=== PATIENT | female | born 1960 | race Caucasian/White ===

== ENCOUNTER 2019-12-03 18:40 | Emergency (ER) | payer BC, SELFPAY ==
--- NOTE | 2019-12-03 18:49 | ED.GENADULT ---
HPI - General Adult General Chief complaint: Skin/Abscess/Foreign Body Stated complaint: poison kye Time Seen by Provider: 12/03/19 18:55 Source: patient Mode of arrival: ambulatory Limitations: no limitations History of Present Illness HPI narrative: 59-year-old female patient presents to the [facility] with complaints of a rash to the chin, neck, chest, abdomen, bilateral arms and bilateral legs. Patient states she has had this for the past 7 days. Patient states that she is highly allergic to poison kye and states that her has poison kye and she thinks that she got it from him. Denies any chest pain or shortness of breath. Denies any swelling to the lips tongue or face or trouble swallowing. Related Data Allergies Allergy/AdvReac Type Severity Reaction Status Date / Time enteric coating Allergy Uncoded 12/03/19 18:57 Review of Systems Review of Systems: Narrative: CONSTITUTIONAL: Denies fever, chills, or sweats. EYES: Denies visual changes, redness, or discharge. ENT: Denies rhinorrhea, congestion, sore throat, or otalgia. CARDIOVASCULAR: Denies chest pain, palpitations, or edema. RESPIRATORY: Denies cough or dyspnea. GASTROINTESTINAL: Denies abdominal pain, nausea, vomiting, or diarrhea. GENITOURINARY: Denies dysuria or hematuria. SKIN: Positive generalized rash with itching x7 days MUSCULOSKELETAL: Denies back pain, joint pain, or myalgia. NEUROLOGIC: Denies headache, numbness, or weakness. PSYCHIATRIC: Denies anxiety or depression. PMFSH Comments At the time of my signature I agree with nursing past medical history, surgical, social, and family history. There is no relevant family history pertinent to the presenting complaint. Exam Narrative: Exam Narrative: GENERAL: Well-appearing, well-nourished, and in no acute distress. HEAD: Normocephalic, atraumatic. EYES: PERRLA and EOMI. ENT: Nares clear, no rhinorrhea or epistaxis. Mucous membranes moist. NECK: Supple. No lymphadenopathy CHEST: Clear to auscultation. No respiratory distress. HEART: Regular rate and rhythm. No murmur heard. Normal peripheral pulses. ABDOMEN: Soft, nontender, nondistended, normal active bowel sounds. EXTREMITIES: Normal range of motion. No edema. SKIN: Warm, dry, patient has periodic blotchy rash noted to the creases of bilateral elbows along with some satellite areas and small raised papules around the wrist. Patient has a linear rash noted to the left side of the chin and the left side of the neck. Patient has similar blotchy-like rash noted to the abdomen area. No open wounds or discharge. NEURO: No focal deficits. Alert and oriented x3. Course Vital Signs Vital signs: Vital Signs Temperature 36.0 C L 12/03/19 18:51 Pulse Rate 65 12/03/19 18:51 Respiratory Rate 16 12/03/19 18:51 Blood Pressure 116/80 12/03/19 18:51 Pulse Oximetry 99 12/03/19 18:51 Temperature 36.0 C L 12/03/19 18:51 Pulse Rate 65 12/03/19 18:51 Respiratory Rate 16 12/03/19 18:51 Blood Pressure 116/80 12/03/19 18:51 Pulse Oximetry 99 12/03/19 18:51 Vital signs reviewed. Medical Decision Making Differential Diagnosis Differential Diagnosis: Differential diagnosis: Contact dermatitis, poison kye, poison sumac, psoriasis, eczema, allergic reaction, drug reaction, scabies, tinea syphilis, lung disease, viral exanthema, pityriasis, erythema multiforme. Discussed with patient we will discharge her home with some oral steroids and use a taper dose to help with the rash. Discussed with her she can continue using the cornstarch and apple cider vinegar as needed to help with the itching that she has been doing. Discussed with patient if she has trouble breathing, chest pain or any other concerning symptoms she would need to go the ER for further evaluation and treatment. Patient verbalized understanding denies any other questions or concerns at this time. Vital Signs Vital Signs: Vital Signs Temperature 36.0 C L 12/03/19 18:51
[2019-12-03 18:51] VITALS: BP 116/80; PULSE 65; RESP 16; TEMP 36; O2SAT 99
== END 2019-12-03 19:05 | disposition home or self-care (01) ==
PROVIDERS: Emergency Provider Nurse Practitioner Family
DX: L23.7 Allergic contact dermatitis due to plants, except food (principal)
CPT/HCPCS: 99213; G0463

== ENCOUNTER 2022-01-15 12:25 | Outpatient (CLI) | payer BC, SELFPAY ==
--- NOTE | ~2022-01-15 | CT_ITS ---
EXAMINATION: CT abdomen pelvis w con DATE: 01/15/2022 13:54 INDICATION: Lower abdominal pain. Stool and consistency. TECHNIQUE: Computed tomography (CT) of the abdomen and pelvis was performed with 100 cc Omnipaque 350 intravenous contrast. The dose-length product was 470.83 mGy-cm. Automated exposure control and iter ative reconstruction technique were employed. COMPARISON: None. FINDINGS: There is dependent atelectasis. Heart size normal. No significant pleural or pericardial ef fusion. The liver, spleen, pancreas, adrenal glands and left kidney are unremarkable. No ureteral sto [place]. Bladder is decompressed. There is a low-density lesion in the left kidney, most likely benign cy st. There is mild thickening of the sigmoid colon with diverticula and subtle surrounding pericolonic fatty infiltration, compatible with mild acute diverticulitis. No free air. No evidence for abscess. No significant vascular abnormality. Gallbladder is present. No lymphadenopathy. Mild osteoarthritis of the hips. Moderate lumbar spondylosis. Limbus vertebra are present at L3, L4 and L5. IMPRESSION: 1. Mild uncomplicated acute sigmoid diverticulitis. Reviewed, dictated and finalized at location A.
[2022-01-15 13:35] LABS: Estimated Glomerular Filt Rate > 60
== END 2022-01-15 12:26 | disposition home or self-care (01) ==
PROVIDERS: PCP Internal Medicine; Visit Provider Nurse Practitioner
DX: R10.30 Lower abdominal pain, unspecified (principal); Z85.41 Personal history of malignant neoplasm of cervix uteri; K57.30 Diverticulosis of large intestine without perforation or abscess without bleeding
CPT/HCPCS: 74177; Q9967

== ENCOUNTER 2022-03-04 17:40 | Inpatient (IN) | payer BC, SELFPAY ==
[2022-03-04] VITALS (27 sets, daily range): BP systolic 98–131; BP diastolic 58–103; PULSE 67–95; RESP 11–26; TEMP 36.9–39; O2SAT 93–100
--- NOTE | ~2022-03-04 | MR_ITS ---
EXAMINATION: MR cervical spine wo/w con DATE: 03/06/2022 14:10 INDICATION: Multiple sclerosis. TECHNIQUE: Magnetic resonance imaging (MRI) of the cervical spine was performed without and with 13 m L MultiHance intravenous contrast. COMPARISON: None FINDINGS: There is kyphosis of cervical spine. Vertebral body heights are normal. There is mildly dec reased disc height at C3-C4. There is severely decreased disc height from C4-C5 through C6-C7. The sp inal cord signal intensity is normal. The following disc levels are specifically discussed: C2-C3: The disc does not extend beyond the endplate margin. There is no uncovertebral joint osteoarth ritis. There is mild right and severe left facet joint osteoarthritis. There is moderate left neural foraminal stenosis. There is no central canal stenosis. C3-C4: The disc is bulging. There is mild bilateral uncovertebral joint osteoarthritis. There is mode rate bilateral facet joint osteoarthritis. There is mild bilateral neural foraminal stenosis. There i s mild central canal stenosis with ventral indentation of the spinal cord. C4-C5: The disc is bulging. There is severe bilateral uncovertebral joint osteoarthritis. There is mi ld bilateral facet joint osteoarthritis. There is moderate bilateral neural foraminal stenosis. There is moderate central canal stenosis with ventral and dorsal indentation of the spinal cord. C5-C6: The disc is bulging. There is moderate right and severe left uncovertebral joint osteoarthriti s. There is no facet joint osteoarthritis. There is severe left neural foraminal stenosis. There is m ild central canal stenosis. C6-C7: The disc is bulging. There is severe bilateral uncovertebral joint osteoarthritis. There is mi ld bilateral facet joint osteoarthritis. There is moderate bilateral neural foraminal stenosis. There is mild central canal stenosis. C7-T1: There is a central extrusion. There is no uncovertebral joint osteoarthritis. There is moderat e bilateral facet joint osteoarthritis. There is mild bilateral neural foraminal stenosis. There is m ild central canal stenosis. IMPRESSION: 1. No evidence of multiple sclerosis. 2. Severe cervical spondylosis. Reviewed, dictated and finalized at location B.
--- NOTE | ~2022-03-04 | CT_ITS ---
EXAMINATION: CT abdomen pelvis w con DATE: 03/04/2022 19:51 INDICATION: LLQ pain, recent diverticulitis, fever TECHNIQUE: Computed tomography (CT) of the abdomen and pelvis was performed with 100 mL Omnipaque-350 intravenous contrast. Automated exposure control and iterative reconstruction technique were employe d. The dose-length product was 560.02 mGy-cm. COMPARISON: None. FINDINGS: Lower thorax: Unremarkable Liver: Normal. Biliary/Gallbladder: No bile duct dilation. Pancreas: No mass or duct dilation. Spleen: Normal. Adrenals:No mass. Kidneys: Simple right upper pole cyst. Multiple bilateral hypodensities that are too small to charact erize. GI tract: Distal esophageal and gastric wall edema. No small or large bowel dilation. Descending and sigmoid colon wall edema. Normal appendix. Diverticulosis without diverticulitis. Mesentery/Peritoneum: No ascites, mass, or free air. Retroperitoneum: No mass. Atherosclerotic abdominal aortic and/or arterial calcifications. Pelvis: Pelvic organs are within normal limits. Soft Tissues: Soft tissues and body wall unremarkable. Bones: No acute osseous finding. IMPRESSION: Esophagitis/gastritis. Descending colonic and sigmoid wall edema as can be seen with infectious, isch emic, or inflammatory colitis. Reviewed, dictated and finalized at location K. IMPRESSION: Esophagitis/gastritis. Descending colonic and sigmoid wall edema as can be seen with infectious, ischemic, or inflammatory colitis.
--- NOTE | ~2022-03-04 | CT_ITS ---
EXAMINATION: CT brain wo con DATE: 03/04/2022 19:51 INDICATION: syncope X 2, fall, HI, confusion . TECHNIQUE: Computed tomography (CT) of the head was performed without intravenous contrast. The mA wa s adjusted according to patient size. Iterative reconstruction technique was employed. The dose-lengt h product was 605.33 mGy-cm. COMPARISON: None FINDINGS: No acute intracranial hemorrhage or extra-axial fluid collection. No hydrocephalus, mass, or herniation. Focal periventricular hypodensity, projecting off of the body of the right lateral ventricle in the r ight posterior frontal lobe. Unremarkable dural venous sinus attenuation. No acute osseous abnormality. The aerated spaces are clear. Mild atrophy and chronic white matter change. Left basal ganglia calcification. Atherosclerotic intra cranial calcification. IMPRESSION: Periventricular hypodensity in the right frontal lobe, differential includes but is not limited to lemon bacute/chronic periventricular infarct or edema from a demyelinating lesion. Consider MR of the brain with and without contrast when clinically feasible. Reviewed, dictated and finalized at location K. IMPRESSION: Periventricular hypodensity in the right frontal lobe, differential includes bu t is not limited to subacute/chronic periventricular infarct or edema from a de myelinating lesion. Consider MR of the brain with and without contrast when cli nically feasible.
--- NOTE | ~2022-03-04 | MR_ITS ---
EXAMINATION: MR brain/brain stem wo/w con DATE: 03/05/2022 08:43 INDICATION: Acute mental status. Paraventricular infarct versus edema on head CT. TECHNIQUE: Magnetic resonance imaging (MRI) of the brain and brainstem was performed without and with 12 mL Multihance intravenous contrast. Sequences included sagittal and axial T1-weighted SE, axial d iffusion-weighted FS SE, axial T2*-weighted GRE, axial 3D SWAN, axial T2-weighted FLAIR, and axial T2 -weighted FSE. Postcontrast axial and coronal T1-weighted SE was obtained. Apparent diffusion coeffic ient (ADC) maps were created. COMPARISON: Head CT dated 03/04 2022 FINDINGS: There are no areas of restricted diffusion to suggest acute infarction. No intracranial hemorrhage or abnormal intracranial mass lesion. There are scattered areas of nonspecific increased T2-weighted si gnal intensity in the cerebral white matter, predominantly involving the deep and periventricular whi te matter. This includes the prominent focus of right frontal lobe periventricular white matter hypoa ttenuation prior CT. These could represent small infarcts and sequela of chronic small vessel ischemi c disease. Several of the pericallosal white matter lesions however have the appearance of Krause's f ingers which also results in some suspicion for multiple sclerosis.. The pericallosal lesions demonst rate associated decreased T1 signal. There are no intraparenchymal signal abnormalities seen on the o ther pulse sequences. The ventricles are symmetric and normal in size. There are no abnormal extra-ax ial fluid collections. Flow voids are seen in the cerebral arteries on the T2-weighted sequences cons istent with their expected patency. Mild mucosal thickening in the paranasal sinuses. Visualized orbi ts and soft tissues are unremarkable. There are no areas of abnormal enhancement on the post contrast images. IMPRESSION: 1. No acute intracranial process. 2. Multiple small regions of white matter T2 hyperintensity which could be related to small vessel is chemic disease although there are several pericallosal lesions with appearance of Krause's fingers wh ich also raises the possibility of multiple sclerosis. Reviewed, dictated and finalized at location A. IMPRESSION: 1. No acute intracranial process. 2. Multiple small regions of white matter T2 hyperintensity which could be rela fabiola to small vessel ischemic disease although there are several pericallosal le sions with appearance of Krause's fingers which also raises the possibility of multiple sclerosis.
--- NOTE | ~2022-03-04 | CT_ITS ---
EXAMINATION: CT cervical spine wo con DATE: 03/04/2022 19:51 INDICATION: syncope X 2, fall, HI TECHNIQUE: Computed tomography (CT) of the cervical spine was performed without intravenous contrast. Automated exposure control and iterative reconstruction technique were employed. The dose-length pro duct was 251.05 mGy-cm. COMPARISON: None FINDINGS: Vertebral Body Alignment: Mild grade 1 anterolisthesis of C2 on 3, likely on a degenerative basis.. Craniocervical and atlantoaxial alignment: Mild degenerative change. Alignment intact. Osseous structures/fracture: No evidence of a lytic or blastic process in the visualized spine. No e vidence of acute fracture. Cervical soft tissues: The paraspinal soft tissues planes are maintained. Degenerative changes: Multilevel severe degenerative disc disease. Multilevel moderate left neural fo raminal narrowing. No severe central canal narrowing. IMPRESSION: No acute fracture or traumatic malalignment in the cervical spine. Reviewed, dictated and finalized at location K.
--- NOTE | ~2022-03-04 | MR_ITS ---
EXAMINATION: MR thoracic spine wo/w con DATE: 03/06/2022 14:18 INDICATION: Multiple sclerosis. TECHNIQUE: Magnetic resonance imaging (MRI) of the thoracic spine was performed without and with 13 m L MultiHance intravenous contrast. COMPARISON: None FINDINGS: Bone alignment is normal. Vertebral body heights are normal. There is mildly decreased disc height from T3-T4 through T6-T7. The discs do not extend beyond the endplate margins. There is multi level facet joint osteoarthritis, severe in upper thoracic spine. On the right, there is mild neural foraminal stenosis at T2-T3 and T4-T5. On the left, there is mild neural foraminal stenosis at T2-T3, T3-T4, and T4-T5. There is increased T2-weighted signal intensity in the spinal cord at T12 without contrast enhancement. The conus medullaris is at L1. IMPRESSION: 1. Increased T2-weighted signal intensity in the spinal cord at T12. The differential diagnosis inclu debbie multiple sclerosis, transverse myelitis, viral myelitis, and acute disseminated encephalomyelitis . 2. Mild thoracic spondylosis. Reviewed, dictated and finalized at location B. IMPRESSION: 1. Increased T2-weighted signal intensity in the spinal cord at T12. The differ ential diagnosis includes multiple sclerosis, transverse myelitis, viral myelit is, and acute disseminated encephalomyelitis. 2. Mild thoracic spondylosis.
--- NOTE | 2022-03-04 17:46 | ECG_ITS ---
Measurements Intervals [place] Rate: 94 P: 67 SC: 141 QRS: 45 QRSD: 81 T: 8 QT: 326 QTc: 408 Interpretive Statements SINUS RHYTHM POSSIBLE LEFT ATRIAL ENLARGEMENT [-0.1mV P WAVE IN V1/V2] NONSPECIFIC ST & T-WAVE ABNORMALITY NO PREVIOUS ECG AVAILABLE FOR COMPARISON Electronically Signed On 03-05-2022 17:38:35 CDT by Soco Farris M.D.
--- NOTE | 2022-03-04 18:30 | ED.GENADULT ---
HPI - General Adult General Chief complaint: Syncope <MARCELA Nolan Last Filed: 03/04/22 20:38> Stated complaint: Syncope x 2 in the past 24 hours <MARCELA Nolan Last Filed: 03/04/22 20:38> Time Seen by Provider: 03/04/22 18:15 <MARCELA Nolan Last Filed: 03/04/22 20:38> Source: patient and old records reviewed <MARCELA Nolan Last Filed: 03/04/22 20:38> Mode of arrival: ambulatory <MARCELA Nolan Filed: 03/04/22 20:38> Limitations: no limitations <MARCELA Nolan Last Filed: 03/04/22 20:38> History of Present Illness HPI narrative: Patient is a 61 y/o female who presents to the ED with multiple complaints. Patient reports she had 2 syncopal episodes within the last 24 hours. 1 episode yesterday, the second at around 5 AM this morning. Patient states she woke up on her bathroom marble floor. She states the cold floor was helpful because she had a fever up to 103 degrees earlier that day. She does remember feeling dizzy prior to passing out. She states she has felt confused since the falls. Patient also reports having lower abdominal pain. She was recently diagnosed with diverticulitis and started on Cipro/Flagyl on 01/16. Since finished these antibiotics. Patient c/o mild headache currently and recent diarrhea and constipation, denies CP, SOB, current dizziness, vision changes, rectal bleeding. <MARCELA Nolan Last Filed: 03/04/22 20:38> Related Data Allergies/adverse reactions: Allergies Allergy/AdvReac Type Severity Reaction Status Date / Time enteric coating Allergy Mild Hives Uncoded 02/09/22 15:27 <MARCELA Nolan Last Filed: 03/04/22 20:38> Review of Systems Review of Systems: CONSTITUTIONAL: Denies fever, chills, or sweats. EYES: Denies visual changes. ENT: Denies rhinorrhea, congestion, sore throat. CARDIOVASCULAR: Denies chest pain. RESPIRATORY: Denies cough or dyspnea. GASTROINTESTINAL: Reports lower abdominal pain, diarrhea, constipation. Denies nausea, vomiting, rectal bleeding. GENITOURINARY: Denies dysuria or hematuria. NEUROLOGIC: Reports dizziness, syncope, HI, dizziness, JIMENEZ. Denies numbness or focal weakness. <Sheela Tripathi PA-C - Last Filed: 03/04/22 20:38> All systems reviewed & are unremarkable except as noted in HPI and below <Sheela Tripathi PA-C - Last Filed: 03/04/22 20:38> PMFSH Past Medical History Medical History: Medical History Broken toes Cervical cancer Frozen shoulder Tear of rotator cuff <Sheela Tripathi PA-C - Last Filed: 03/04/22 20:38> Surgical History Surgical History: Surgical History (Updated 03/04/22 @ 18:30 by Sheela Tripathi PA-C) History of colonoscopy <Sheela Tripathi PA-C - Last Filed: 03/04/22 20:38> Family History Family History: Family History Mother Tremors of nervous system Father Heart disease Sibling Heart disease Sibling No problems noted. <Sheela Tripathi PA-C - Last Filed: 03/04/22 20:38> Social History Social History: Social History Smoking status: Never smoker <Sheela Tripathi PA-C - Last Filed: 03/04/22 20:38> Exam Narrative: GENERAL: Well appearing, well-nourished, non-toxic, in no acute distress. HEAD: Normocephalic, atraumatic. EYES: PERRL/EOMI, conjunctivae clear bilaterally. No nystagmus. THROAT: Pharynx clear, no exudate. MMs dry and tacky. NECK: Supple. No adenopathy, no masses. Full ROM of neck. No meningeal signs - negative Kernig's and Brudzinski's. RESPIRATORY: Airway patent, respirations nonlabored. Clear to auscultation bilaterally, no rales, rhonchi, wheezing. CARDIOVASCULAR: Borderline tachycardic with regular rhythm w
[2022-03-04] MEDS: SODIUM CHLORIDE 0.9% IV 1,000 ML 999 ML IV CONT (18:53)
[2022-03-04 19:03] LABS: Basophils Percent Auto 0.5 % (0.2-1.2); Hematocrit 39.3 % (37.0-47.0); Hemoglobin 13.5 g/dL (12.0-15.0); Immature Granulocyte Absolute 0.02 K/mm3 (0.00-0.031); Immature Granulocyte Percent A 0.5 % (0-0.5); Lymphocytes Percent Auto 20.3 % (18.3-44.2); Mean Corpuscular HGB Conc 34.4 g/dl (32-36); Mean Corpuscular Hemoglobin 30.8 pg (26-34); Mean Corpuscular Volume 89.5 fl (80-100); Mean Platelet Volume 11.7 fl (7.4-10.4); Monocytes Absolute Auto 0.5 K/mm3 (0.1-0.6); Monocytes Percent Auto 11.9 % (2.6-8.5); Neutrophils Percent Auto 66.8 % (45.5-73.1); Platelet Count Result 164 k/mm3 (150-375); Red Blood Count 4.39 M/mm3 (4.2-5.4); White Blood Count 4.4 K/mm3 (4.5-10.0)
[2022-03-04 19:09] LABS: Creatine Kinase 50 U/L (30-135)
[2022-03-04 19:09] LABS: Lactic Acid Reflex 0.8 mmol/L (0.7-2.0)
[2022-03-04 19:12] LABS: Alanine Aminotransferase 21 U/L (6-35); Albumin Level 4.5 g/dL (3.5-5.1); Alkaline Phosphatase 61 U/L (38-126); Anion Gap 11 mmol/L (8-16); Aspartate Amino Transferase 38 U/L (14-36); Bilirubin,Total 1.3 mg/dL (0.2-1.3); Blood Urea Nitrogen 19 mg/dL (7-17); Calcium 8.8 mg/dL (8.4-10.2); Carbon Dioxide 24 mmol/L (22-30); Chloride 99 mmol/L (98-107); Estimated CRCL calculation 49 ml/min; Estimated Glomerular Filt Rate > 60; Glucose 122 mg/dL (65-110); Potassium 3.6 mmol/L (3.4-5.0); Sodium 134 mmol/L (137-145)
[2022-03-04 19:22] LABS: Troponin I < 0.012 ng/mL (0.000-0.034)
[2022-03-04 19:34] LABS: SARS-CoV-2 RNA PCR Negative
[2022-03-04 20:28] LABS: Appearance Urine Clear (Clear); Bilirubin Urine Negative (Negative); Blood Urine 2+ (Negative); Color Urine Yellow (Yellow); Glucose Urine UA Negative (Negative); Ketones Urine Trace mg/dL (Negative); Leukocyte Esterase Ur Negative LEU/UL (Negative); Nitrate Urine Negative (Negative); Protein Urine 2+ mg/dL (Negative); Specific Grav Ur 1.015 (1.001-1.035); Urobilinogen Urine 0.2 mg/dL (<2.0); pH Urine 5.5 (5.0-9.0)
[2022-03-04 20:34] LABS: Mucus Urine Few /lpf; Squamous Epithelial Cell Urine Many /hpf (Few)
[2022-03-04 20:36] LABS: Add Urine Microscopic? YES
[2022-03-04 20:41] LABS: Amphetamine Screen Urine Negative (Negative); Barbiturate Screen Urine Negative (Negative); Benzodiazepines Screen Urine Negative (Negative); Cannabinoid Screen Urine Negative (Negative); Cocaine Screen Urine Negative (Negative); Methadone Screen Urine Negative (Negative); Opiate Screen Urine Negative (Negative); Phencyclidine Screen Urine Negative (Negative)
[2022-03-05] VITALS (16 sets, daily range): BP systolic 85–119; BP diastolic 49–63; PULSE 71–96; RESP 16–25; TEMP 36.2–37; O2SAT 94–100; BMI 25.2
[2022-03-05] MEDS: ONDANSETRON INJ 4 MG/2 ML VIAL IV PUSH (00:10)
--- NOTE | 2022-03-05 01:20 | ADMGEN ---
This patient, Silvana Rojas, was admitted to Medical Room 242-01. Patient/family oriented to hospital policies and general routines including ID bracelet, bed and alarms, visiting hours, pain management, procedures, bathroom and other care routines, personal items, smoking policy, room service/diet, and visiting hours. Information on how to activate the Rapid Response Team has been discussed. Patient/Family are encouraged to report perceived risks to care and to ask questions if they do not understand what they are told or what they should do.
[2022-03-05] MEDS: SODIUM CHLORIDE 0.9% IV 1,000 ML 125 ML IV CONT ×3 (02:10→23:04)
[2022-03-05 03:52] LABS: Toxigenic C. Diff NEGATIVE (NEGATIVE)
--- NOTE | 2022-03-05 08:16 | PM.IMHP ---
H&P: HPI History of Present Illness Date/Time: 03/05/22 08:16 Chief Complaint: Syncope Narrative: 61-year-old female past medical history significant for cervical cancer, frozen shoulder, and rotator cuff tear and recent episode of diverticulitis in January treated with a course of Cipro/Flagyl. She presents today with 2 episodes of syncope and fever of 103 at home, 102.2 here in the ER. Patient states that last Sunday she was at work when she started having projectile vomiting after eating a slice of tomato. She then felt quite ill for the next few days. She was able to go to [employer] to hop picker her levothyroxine prescription, she was started on 25 mcg on . On Sunday, patient started experiencing significant diarrhea and had 2 episodes where she passed out in the bathroom after going to the restroom. She also noted fevers up to 103 at home and decided to come to the ER. Abdomen pelvis and CT was ordered and showed esophagitis, gastritis as well as significant colonic edema concerning for colitis. She was started on Zosyn and admitted with a GI consult. Additionally, she seemed to have some altered mentation in the ER with tangential speech and confusion. Therefore, CT head and neck was ordered showing subacute versus chronic periventricular infarcts versus edema, concerning for demyelinating disease. Neurology was also consulted and recommended an MRI. This was ordered and is pending. Labs were essentially benign with no leukocytosis nor transaminitis noted. Lactate was negative, creatinine was normal. Blood and urine cultures were sent. Initial urinalysis looks contaminated, repeat urinalysis is pending. ECG was essentially benign, COVID was negative, troponin was negative. Of note, patient presented to her PCP last month with continued lower abdominal pain intermittently as well as shoulder pain. At that time, an MRI was ordered for her shoulder for possible nerve impingement or cubital tunnel syndrome and she was referred to PT and started on a course of prednisone. She was referred to outpatient GI for screening colonoscopy in January to Dr. Tejada. It appears that she was recently started on levothyroxine, TSH unable to be found and no comment on PCP notes regarding this diagnosis. Review of Systems Review of Systems: 12 point review of systems was assessed and was negative except as noted in the HPI [facility] Past Medical History Medical History Broken toes Cervical cancer Frozen shoulder Tear of rotator cuff Surgical History Surgical History History of colonoscopy Family History Family History Mother Tremors of nervous system Hypothyroidism Osteoarthritis Father Heart disease Sibling Heart disease Sibling No problems noted. Social History Social History Smoking status: Never smoker Alcohol intake: never Substance use: never Spiritual care concerns: No Meds Home Medications and Allergies Home Medications Medication Instructions Recorded Confirmed Type levothyroxine 25 mcg capsule 25 mcg PO DAILY #90 tabs 03/03/22 03/05/22 Rx Allergies Allergy/AdvReac Type Severity Reaction Status Date / Time enteric coating Allergy Mild Hives Uncoded 03/05/22 01:36 Vital Signs Vital Signs - 24 hr 03/04/22 17:55 03/04/22 18:52 03/04/22 18:53 Temperature 102.2 F H Pulse Rate 95 89 91 Respiratory Rate 16 22 H 23 H Blood Pressure 131/73 131/74 Pulse Oximetry 94 95 94 Oxygen Delivery Room Air 03/04/22 20:36 03/04/22 19:05 03/04/22 19:18 Temperature Pulse Rate 75 89 82 Respiratory Rate 19 24 H 18 Blood Pressure 111/71 Pulse Oximetry 94 94 96 Oxygen Delivery 03/04/22 19:35 03/04/22 20:21 03/04/22 20:30 Temperature Pulse Rat
--- NOTE | 2022-03-05 08:43 | WPDNEURCNPN ---
Assessment and Plan Assessment and plan (1) Syncope: Code(s): R55 - Syncope and collapse Status: Acute (2) Acute alteration in mental status: Code(s): R41.82 - Altered mental status, unspecified Status: Acute (3) Abnormal CT of the head: Code(s): R93.0 - Abnormal findings on diagnostic imaging of skull and head, not elsewhere classified Status: Acute Plan Ms. Rojas is a 61 year old female with a history of cervical cancer presenting after two syncopal episodes in the setting of fever. CT head showed periventricular hypodensities confirmed with MRI, but no contrast enhancement. Patient is not in the age group for new onset MS, but she does report transient left vision blurriness and left facial numbness in the past. Another possibility is Susac syndrome given MRI findings and memory issues. - Obtain MRI cervical and thoracic spine w/wo contrast - Consider LP to check for oligoclonal bands Consult date: 03/05/22 Time Seen: 08:43 Reason for consult: Syncope and AMS HPI: Silvana Rojas is a 61 year old female with a history of cervical cancer, who presented due to syncopal episodes for the past two days in the setting of fever. Two days ago she had the first syncopal event. She felt lightheaded before losing consciousness. Yesterday she had another episode which prompted her to be evaluated in the ED. Her tmax was 103 at home and her temperature was 102.2 in the ED. She was diagnosed and treated for deverticulitis about [address] ABD/pelvis was obtained which showed findings concerning for colitis. She also had alteration in her mental status. She was AOx4, but had some tangential responses to questions that were asked. CT head was obtained which showed periventricular hypodensities. UA, UDS, COVID were negative. Vitamin B12 and Folate levels normal. She was started on Zosyn and admitted to the hospital. Patient reports word finding difficultures and memory issues for the past year. She has had episodes where she gets lost while driving in familiar areas. She thought these issues were due to underlying stress. She reports one time history of left eye blurriness of vision and transient left facial numbness (lasting few seconds). She does not remember when this symptoms occurred. She denies any other episodes of focal symptoms. MRI brain was done this AM which showed periventricular and pericallosal white matter lesions without contrast enhancement. Review of Systems Constitutional: Constitutional: Reports body ache(s), Reports chills and Reports fatigue Eyes: Eyes: Reports no additional eye complaints ENT: Reports system reviewed and no additional complaints, except as documented and Reports Normal hearing present Cardiovascular: Cardiovascular: Reports no additional cardiovascular complaints Respiratory: Respiratory: Reports no additional respiratory complaints Gastrointestinal: Gastrointestinal: Reports constipation Genitourinary: Genitourinary: Reports no additional female genitourinary complaints Musculoskeletal: Musculoskeletal: Reports arthralgias Integumentary/Breasts: Skin/Breast: Reports system reviewed and no additional complaints, except as docu Neurologic: Reports as per HPI Psychiatric: Psychiatric: Reports anxiety and Reports depression PMFSH Past Medical History Medical History Broken toes Cervical cancer Frozen shoulder Tear of rotator cuff Surgical History Surgical History History of colonoscopy Family History Family History Mother Tremors of nervous system Hypothyroidism Osteoarthritis Father Heart disease Sibling Heart disease Sibling No problems noted. Social History Social History Smoking status: Never smoker Alcohol in
[2022-03-05] MEDS: CIPROFLOXACIN 400 MG/D5W 200ML 200 ML 200 MG IVPB ×2 (08:46→20:15)
[2022-03-05] MEDS: PANTOPRAZOLE SODIUM IV 40 MG VIAL IV PUSH ×2 (08:59→20:13)
[2022-03-05] MEDS: KETOROLAC 15 MG/ML VIAL (*BKC) IV PUSH (09:00)
[2022-03-05 09:05] LABS: Appearance Urine Clear (Clear); Bilirubin Urine Negative (Negative); Blood Urine 2+ (Negative); Color Urine Yellow (Yellow); Glucose Urine UA Negative (Negative); Ketones Urine Negative (Negative); Leukocyte Esterase Ur Negative LEU/UL (NEGATIVE); Nitrate Urine Negative (Negative); Protein Urine 1+ mg/dL (Negative); Specific Grav Ur >= 1.030 (1.001-1.035); Urobilinogen Urine 0.2 mg/dL (<2.0); pH Urine 5.5 (5.0-9.0)
[2022-03-05 09:15] LABS: Add Urine Microscopic? YES; Mucus Urine Rare /lpf; Squamous Epithelial Cell Urine Rare /hpf (Few)
[2022-03-05 09:36] LABS: Vitamin D 25 Hydroxy 48.1 ng/mL
[2022-03-05] MEDS: metroNIDAZOLE 500 MG/ISO 100ML 500 MG/100 ML BAG 100 MG IVPB ×3 (10:05→21:18)
[2022-03-05 10:31] LABS: Folic Acid > 20.0 ng/mL (2.76->20)
[2022-03-05] MEDS: LEVOTHYROXINE SODIUM 75 MCG TABLET PO (13:01)
[2022-03-05] MEDS: ACETAMINOPHEN 325 MG TABLET 650 MG PO (17:14)
[2022-03-05 20:32] LABS: IFOB Positive Control Positive; Immunochemical Fecal Occult Bl Positive (N)
[2022-03-06] VITALS (7 sets, daily range): BP systolic 107–118; BP diastolic 49–68; PULSE 70–90; RESP 18–20; TEMP 36.8–38.1; O2SAT 95–98; BMI 25.2
[2022-03-06] MEDS: ACETAMINOPHEN 325 MG TABLET 650 MG PO ×2 (01:02→18:37)
[2022-03-06] MEDS: LEVOTHYROXINE SODIUM 75 MCG TABLET PO (05:34)
[2022-03-06] MEDS: metroNIDAZOLE 500 MG/ISO 100ML 500 MG/100 ML BAG 100 MG IVPB ×3 (05:34→22:08)
[2022-03-06 06:06] LABS: Hematocrit 31.4 % (37.0-47.0); Hemoglobin 10.3 g/dL (12.0-15.0); Mean Corpuscular HGB Conc 32.8 g/dl (32-36); Mean Corpuscular Hemoglobin 30.8 pg (26-34); Mean Platelet Volume 11.6 fl (7.4-10.4); Platelet Count Result 145 k/mm3 (150-375); Red Blood Count 3.34 M/mm3 (4.2-5.4); Red Cell Distribution Width 13.3 % (11.5-14.5); White Blood Count 4.3 K/mm3 (4.5-10.0)
[2022-03-06 06:37] LABS: Alanine Aminotransferase 20 U/L (6-35); Albumin Level 3.3 g/dL (3.5-5.1); Alkaline Phosphatase 49 U/L (38-126); Anion Gap 9 mmol/L (8-16); Aspartate Amino Transferase 35 U/L (14-36); Bilirubin,Total 0.6 mg/dL (0.2-1.3); Blood Urea Nitrogen 7 mg/dL (7-17); Calcium 7.8 mg/dL (8.4-10.2); Carbon Dioxide 23 mmol/L (22-30); Chloride 106 mmol/L (98-107); Estimated CRCL calculation 55 ml/min; Estimated Glomerular Filt Rate > 60; Glucose 98 mg/dL (65-110); Potassium 3.1 mmol/L (3.4-5.0); Sodium 138 mmol/L (137-145)
--- NOTE | 2022-03-06 07:04 | WPDGICN ---
Assessment and Plan Assessment and plan (1) Nausea and vomiting: Code(s): R11.2 - Nausea with vomiting, unspecified Status: Acute Assessment and Plan: which he had the most severe nausea vomiting 5 days ago. She states she had only liquids yesterday such as soup for lunch but did have some mashed potatoes at dinner last night and kept that down. I started her on a clear liquid diet for for this morning and saw that she was eating potato chips when I entered the room. As scheduled for an EGD to be done today (2) Colitis: Code(s): K52.9 - Noninfective gastroenteritis and colitis, unspecified Status: Acute Assessment and Plan: CT scan suggests colitis. She had already been scheduled for colonoscopy later this month due to the fact that she had diverticulitis last month (3) Diarrhea: Code(s): R19.7 - Diarrhea, unspecified Status: Acute Assessment and Plan: she is somewhat concerned about some and Humera. Stools have been sent for pathogens. (4) Fever: Code(s): R50.9 - Fever, unspecified Status: Acute Assessment and Plan: No fever since admission (5) Syncope: Code(s): R55 - Syncope and collapse Status: Acute Assessment and Plan: she apparently fainted twice at home. Once when she was having diarrhea she found herself on the marble floor. (6) Acute alteration in mental status: Code(s): R41.82 - Altered mental status, unspecified Status: Acute Assessment and Plan: ER notes suggest that she has had some confusion. She did have an MRI of the brain. She admits to me that she is having a difficult time recalling her history accurately. (7) Anemia: Code(s): D64.9 - Anemia, unspecified Status: Acute Assessment and Plan: initial hemoglobin was 13.5. Today is 10.3. MCV is normal (8) Blood in stool: Code(s): K92.1 - Melena Status: Acute Assessment and Plan: hemoccult is positive. GI Consult Note Consult date/time: 03/06/22 07:04 HPI: Silvana Rojas is a 61 year old female who was admitted here with recent vomiting with fever and some mental confusion. She states that she also is having diarrhea. She was treated with what was thought to be diverticulitis about a month ago and then referred for colonoscopy. About a week ago she had eaten a vegetable based meal at a fast food restaurant, [employer], and 2 days later while at work developed severe vomiting with retching. It was uncontrollable. A co-worker went to a pharmacy and got her some Dramamine. She still however felt too weak to even drive herself home. The next day she felt fairly good but later in the week she became ill again with fever, lower abdominal cramping as if having ovarian menstrual cramps, and diarrhea. She had been in the bathroom with diarrhea when she passed out and found herself on the floor. She states that she had she had 2 episodes of falling. Of note, she was also found have some altered mentation in the emergency room and affect taking her history I also found that she had somewhat tangential speech. She admitted that she has been foggy and had a difficult time recalling details. She states that when she saw her physician last month for what was thought to be diverticulitis she may have had a similar type of taco shortly before that episode. She added that she wants to be checked for everything, wanting blood tests for HIV and all possible infections she had tolerated soup yesterday. She had mesh tails in the evening. I have put her on a clear liquid diet in anticipation of possible endoscopy today to evaluate the abnormality seen on CT scan. As I entered the room she was eating potato chips. She had been referred to me to have a colonoscopy later this month. She is in fact I see on the schedule with Dr. Chery. She has had no vomiting since she came here. Prior to month ago she
[2022-03-06] MEDS: SODIUM CHLORIDE 0.9% IV 1,000 ML 125 ML IV CONT ×2 (07:51→20:04)
[2022-03-06] MEDS: PANTOPRAZOLE SODIUM IV 40 MG VIAL IV PUSH ×2 (09:10→20:04)
[2022-03-06] MEDS: POTASSIUM CHLORIDE 20 MEQ TABLET 40 MEQ PO (09:10)
[2022-03-06] MEDS: CIPROFLOXACIN 400 MG/D5W 200ML 200 ML 200 MG IVPB ×2 (09:11→20:05)
[2022-03-06 09:20] LABS: Atypical Lymphocytes Present; Band Neutrophils Percent 28 % (0-6); Lymphocytes Absolute Manual 1.41 K/mm3 (1.1-4.5); Monocytes Absolute Manual 0.55 K/mm3 (0.1-0.90); Monocytes Percent Manual 13 % (3-9); Neutrophils Absolute Manual 2.32 K/mm3 (1.7-7.2); Neutrophils Percent Manual 26 % (46-73); Platelet Estimate Adequate (Adequate); Schistocytes None Seen (NORMAL); Total Cells Counted 100
--- NOTE | 2022-03-06 10:21 | PC.NURSE ---
Speech And Language Assistant spoke with Deisy CAMACHO in GI lab, made aware pt is refusing to allow Dr. Tejada a frail old man preform her surgery when she follow Dr. Chery and is only allowing him to complete the procedure as she is not confident in any other MD. Pt is aware Dr. Chery is out of office she reports she has colonoscopy scheduled 03/24/2022. Deisy reports she will report this to Dr. Tejada.
--- NOTE | 2022-03-06 13:15 | PC.NURSE ---
To MRI via wheelchair.
--- NOTE | 2022-03-06 14:15 | PC.NURSE ---
Returned from MRI via wheelchair.
--- NOTE | 2022-03-06 18:13 | PM.IMPN ---
Progress Note: A&P Assessment and Plan (1) Acute alteration in mental status: Code(s): R41.82 - Altered mental status, unspecified Status: Acute Assessment and Plan: Appears stable, possibly at baseline, appreciate neurology consultation, MRI cervical and thoracic spine pending to evaluate for possible MS (2) Colitis: Code(s): K52.9 - Noninfective gastroenteritis and colitis, unspecified Status: Acute Assessment and Plan: GI planned for EGD today, cannot see this was done or not in the chart, stool studies and stool culture pending Continue Cipro/Flagyl (3) History of cervical cancer: Code(s): Z85.41 - Personal history of malignant neoplasm of cervix uteri Status: Acute Assessment and Plan: Outpatient OBGYN consult pending (4) Hypothyroidism: Code(s): E03.9 - Hypothyroidism, unspecified Status: Acute Assessment and Plan: Check TSH, cont levothyroxine TSH >13.6, will start weight based dose of levothyroxine (1.6 mcg/kg = 105 mcg) will start slow at 75 mcg and recheck in 2-3 weeks outpatient, will likely need around 100 mcg daily (5) Abnormal CT of the head: Code(s): R93.0 - Abnormal findings on diagnostic imaging of skull and head, not elsewhere classified Status: Acute Assessment and Plan: Appreciate neuro consult, MRI pending MRI showed possible MS, awaiting neuro recs (6) Lower abdominal pain: Code(s): R10.30 - Lower abdominal pain, unspecified Status: Acute Assessment and Plan: Unsure of etiology (7) Syncope: Code(s): R55 - Syncope and collapse Status: Acute Assessment and Plan: Check echo, check MRI, check orthostatics Plan DVT prophylaxis with SCDs GI prophylaxis with PPI Code status full code Subjective Date/time seen: 03/06/22 18:13 Interval history: Try to check on patient multiple times, patient was an EGD then later on MRI, then later on still out of the room. Per the nurse, there were no new overnight events. No fevers. Nursing staff state patient seems about the same as yesterday. Review of Systems Review of Systems: Unable to assess as patient was out of the room most of the day Exam Narrative: Deferred Objective Data Vital Signs Vital Signs: Vital Signs - 24 hr 03/05/22 21:42 03/06/22 01:02 03/06/22 06:00 Temperature 97.4 F L 100.5 F H 98.6 F Pulse Rate 75 70 Respiratory Rate 16 20 Blood Pressure 108/52 L 110/68 Pulse Oximetry 94 98 Oxygen Delivery 03/06/22 09:10 Temperature Pulse Rate Respiratory Rate 20 Blood Pressure Pulse Oximetry 98 Oxygen Delivery Room Air Intake/Output Intake/Output: Intake & Output 03/03/22 03/04/22 03/05/22 03/06/22 23:59 23:59 23:59 23:59 Intake Total 1100 3620 3010 Output Total 1500 5 Balance 1100 2120 3005 Meds/Results Medications: Active Medications Generic Name Dose Route Start Last Admin Trade Name Freq PRN Reason Stop Dose Admin Acetaminophen 650 mg 03/05/22 17:01 03/06/22 01:02 Acetaminophen 325 Mg Tablet PO 650 mg Q6H PRN Administration Mild Pain (1-3) or Fever Sodium Chloride 1,000 mls @ 125 mls/hr 03/05/22 00:25 03/06/22 15:28 Normal Saline Iv IV CONT 125 mls/hr .Q8H WILLIAM Infusion Metronidazole 500 mg in 100 mls @ 100 mls/hr 03/05/22 08:10 03/06/22 15:28 Flagyl 500 Mg/Iso Soln 100 Ml IVPB Infused Q8HR WILLIAM Infusion Ciprofloxacin/Dextrose 200 mls @ 200 mls/hr 03/05/22 09:00 03/06/22 10:10 Cipro 400 Mg/D5w 200 Ml IVPB Infused Q12HR WILLIAM Infusion Levothyroxine Sodium 75 mcg 03/05/22 12:20 03/06/22 05:34 Levothyroxine Sodium 75 Mcg Tablet PO 75 mcg DAILY@0630 WILLIAM Administration Pantoprazole Sodium 40 mg 03/05/22 09:00 03/06/22 09:10 Pantoprazole Sodium Iv 40 Mg Vial IV PUSH 40 mg Q12HR WILLIAM Administration Radiology Results: ITS Impressions Head CT 03/04/22 20:07 IMPRESSION: Perivent
[2022-03-07] VITALS (9 sets, daily range): BP systolic 107–140; BP diastolic 45–82; PULSE 64–84; RESP 20–21; TEMP 36.3–37.8; O2SAT 98–100
--- NOTE | 2022-03-07 | ECHO_ITS ---
Patient Info Name: Silvana Rojas Age: 61 years : 1960 Gender: Female Ht: 64 in Wt: 146 lbs BSA: 1.74 m2 HR: 81 bpm BP: 107 / 58 mmHg Technical Quality: Good Exam Date: 03/07/2022 2:36 PM Exam Location: [facility] Patient Status: Inpatient Admit Date: 03/07/2022 Staff Ordering Physician: Anna Ayers DO Veneer Clipper: Benito Chris RDCS, RT Attending Provider: Bebe Harris DO Referring Physician: Andria OSUNA; Exam Type: CA echo doppler color flow Study Info Indications R55 - Syncope and collapse Complete two-dimensional, color flow and Doppler transthoracic echocardiogram is performed. Strain analysis performed. Summary 1. Complete two-dimensional, color flow and Doppler transthoracic echocardiogram is performed. 2. Left ventricular chamber dimension is normal. 3. Left ventricular systolic function is normal, estimated at 60-65%. 4. The left ventricular diastolic function is normal. 5. E/e' 7 is not elevated. 6. Global longitudinal strain is normal at -19.0%. 7. There is trace tricuspid valve regurgitation. 8. Dilated inferior vena cava with >50% collapse upon inspiration consistent with elevated right atrial pressure, 10 mmHg. Left Ventricle E/e' 7 is not elevated. Global longitudinal strain is normal at -19.0%. Left ventricular chamber dimension is normal. Left ventricular systolic function is normal, estimated at 60-65%. The left ventricular diastolic function is normal. Right Ventricle Right ventricular systolic function is normal and with normal TAPSE 2.9 cm. Right ventricular chamber dimension is normal. Left Atria Left atrial chamber dimension is normal. Right Atria Right atrial chamber dimension is normal. Aortic Valve The aortic valve is trileaflet. There is no aortic valve stenosis. There is no aortic valve regurgitation. Pulmonic Valve There is no pulmonic regurgitation. Mitral Valve There is no mitral valve stenosis. Tricuspid Valve There is trace tricuspid valve regurgitation. RVSP is not calculated due to an inadequate TR jet. Pericardium/Pleural There is no pericardial effusion. Inferior Vena Cava Dilated inferior vena cava with >50% collapse upon inspiration consistent with elevated right atrial pressure, 10 mmHg. Aorta The aortic root size at the sinus of Valsalva is normal. Left Ventricular Outflow Tract Name Value Normal LVOT 2D LVOT Diameter 1.9 cm LVOT Doppler LVOT Peak Velocity 110 cm/s LVOT Peak Gradient 5 mmHg LVOT Mean Gradient 3 mmHg LVOT VTI 21 cm LVOT VTI/AV VTI Ratio 0.8 LVOT Stroke Volume 57 ml LVOT CO 4.4 l/min LVOT CI 2.6 l/min/m2 Mitral Valve Name Value Normal MV D
--- NOTE | 2022-03-07 00:21 | PC.NURSE ---
RN instructed patient she may consider going NPO until she talks to GI in the morning in the event they would like to do an EDG. She stated she has to have at least ice chips, stating I have poison inside me. Instructed patient she would likely have to go completely NPO at some point tomorrow if GI plans on doing any procedures.
[2022-03-07] MEDS: ACETAMINOPHEN 325 MG TABLET 650 MG PO ×2 (01:26→10:53)
[2022-03-07 05:11] LABS: Basophils Percent Auto 0.2 % (0.2-1.2); Eosinophils Percent Auto 0.4 % (0-4.4); Hematocrit 29.1 % (37.0-47.0); Hemoglobin 9.5 g/dL (12.0-15.0); Immature Granulocyte Absolute 0.05 K/mm3 (0.00-0.031); Immature Granulocyte Percent A 0.9 % (0-0.5); Immature Platelet Fraction Pct 6.8 % (0.9-11.2); Lymphocytes Absolute Auto 1.23 K/mm3 (0.9-3.2); Lymphocytes Percent Auto 22.9 % (18.3-44.2); Mean Corpuscular HGB Conc 32.6 g/dl (32-36); Mean Corpuscular Volume 95.1 fl (80-100); Mean Platelet Volume 11.2 fl (7.4-10.4); Monocytes Absolute Auto 0.8 K/mm3 (0.1-0.6); Monocytes Percent Auto 15.1 % (2.6-8.5); Neutrophils Absolute Auto 3.3 K/mm3 (1.3-6.7); Neutrophils Percent Auto 60.5 % (45.5-73.1); Platelet Count Result 149 k/mm3 (150-375); Red Blood Count 3.06 M/mm3 (4.2-5.4); Red Cell Distribution Width 13.4 % (11.5-14.5); White Blood Count 5.4 K/mm3 (4.5-10.0)
[2022-03-07 05:27] LABS: Alanine Aminotransferase 21 U/L (6-35); Albumin Level 3.1 g/dL (3.5-5.1); Alkaline Phosphatase 49 U/L (38-126); Anion Gap 10 mmol/L (8-16); Aspartate Amino Transferase 37 U/L (14-36); Bilirubin,Total 0.6 mg/dL (0.2-1.3); Blood Urea Nitrogen 4 mg/dL (7-17); Calcium 7.5 mg/dL (8.4-10.2); Carbon Dioxide 25 mmol/L (22-30); Chloride 104 mmol/L (98-107); Estimated CRCL calculation 62 ml/min; Estimated Glomerular Filt Rate > 60; Glucose 103 mg/dL (65-110); Potassium 2.9 mmol/L (3.4-5.0); Sodium 139 mmol/L (137-145)
[2022-03-07] MEDS: SODIUM CHLORIDE 0.9% IV 1,000 ML 125 ML IV CONT (05:39)
[2022-03-07] MEDS: LEVOTHYROXINE SODIUM 75 MCG TABLET PO (05:39)
[2022-03-07] MEDS: metroNIDAZOLE 500 MG/ISO 100ML 500 MG/100 ML BAG 100 MG IVPB (05:39)
[2022-03-07] MEDS: CIPROFLOXACIN 400 MG/D5W 200ML 200 ML 200 MG IVPB ×2 (09:19→21:18)
[2022-03-07] MEDS: PANTOPRAZOLE SODIUM IV 40 MG VIAL IV PUSH ×2 (09:19→21:24)
--- NOTE | 2022-03-07 10:09 | PM.IMPN ---
Progress Note: A&P Assessment and Plan (1) Acute alteration in mental status: Code(s): R41.82 - Altered mental status, unspecified Status: Acute Assessment and Plan: Appears stable, possibly at baseline, appreciate neurology consultation Would need to corroborate patient's mentation with family/friends to confirm baseline, but patient states she has had these intermittent confusional episodes for ?years? Patient also appears to have an underlying psychiatric condition, possibly anxiety or a personality disorder, unable to fully assess at this time MRI cervical spine and thoracic spine significant for arthritis with some associated changes concerning for MS, will defer to Neurology for further investigations/management, may need an LP due to intermittent fevers and continued altered mental status with abnormalities noted on MRIs (2) Colitis: Code(s): K52.9 - Noninfective gastroenteritis and colitis, unspecified Status: Acute Assessment and Plan: continue cipro/flagyl, appreciate GI consultation (3) History of cervical cancer: Code(s): Z85.41 - Personal history of malignant neoplasm of cervix uteri Status: Acute Assessment and Plan: Outpatient OBGYN consult recommended and pending (4) Hypothyroidism: Code(s): E03.9 - Hypothyroidism, unspecified Status: Acute Assessment and Plan: continue levothyroxine at 75 mcg, would recommend rechecking TSH in 2-3 weeks due to significant elevation and possibly symptomatic (5) Abnormal CT of the head: Code(s): R93.0 - Abnormal findings on diagnostic imaging of skull and head, not elsewhere classified Status: Acute Assessment and Plan: appreciate neurology consultation, further recommendations pending Would recommend outpatient neuropsychology evaluation if definitive diagnosis not made regarding patient's mentation (6) Lower abdominal pain: Code(s): R10.30 - Lower abdominal pain, unspecified Status: Acute Assessment and Plan: Unsure of etiology, essentially resolved at this time (7) Syncope: Code(s): R55 - Syncope and collapse Status: Acute Assessment and Plan: echo still pending, follow-up on results (8) Anemia: Code(s): D64.9 - Anemia, unspecified Status: Acute Assessment and Plan: fecal occult positive, appreciate GI consultation, hemoglobin dropped again today, continue to monitor iron studies pending (9) Hypokalemia: Code(s): E87.6 - Hypokalemia Status: Acute Assessment and Plan: 2.9 today, will replace and recheck later today will switch IV fluids from normal saline to D5 half-normal +20 mEq of potassium (10) Hypocalcemia: Code(s): E83.51 - Hypocalcemia Status: Acute Assessment and Plan: unknown etiology, receiving IV fluids will check magnesium, parathyroid hormone, vitamin-D (11) Hypoalbuminemia: Code(s): E88.09 - Other disorders of plasma-protein metabolism, not elsewhere classified Status: Acute Assessment and Plan: suspect this is secondary to poor p.o. intake from colitis, will add supplements with meals, monitor Plan DVT prophylaxis with SCDs GI prophylaxis with PPI Code status full code Subjective Date/time seen: 03/07/22 10:09 Interval history: Patient states she still has intermittent confusional episodes, but that she has had these for years, they do seem a little worse over the last few years. She can tell when she is losing track of what she was talking about and when she feels more clear-headed. She states her diarrhea is much improved, she thinks it was quite dark and a little black yesterday. She denies seeing any blood in it. Her appetite remains stable. No overnight events noted. No chest pain or shortness of breath. Review of Systems Review of Systems: 12 point review of systems was assessed and was negative except as noted in the HPI
[2022-03-07] MEDS: POTASSIUM CHLORIDE 20 MEQ TABLET 40 MEQ PO (10:54)
[2022-03-07] MEDS: POTASSIUM CHLORIDE INJ 40 MEQ in SODIUM CHLORIDE 0.9% IV 500 ML 130 MEQ IVPB (10:54)
[2022-03-07 11:23] LABS: Lactic Acid Reflex 1.3 mmol/L (0.7-2.0)
--- NOTE | 2022-03-07 11:46 | WPDNEUROPN ---
Subjective Date/time seen: 03/07/22 11:46 Interval history: 61 years old right-handed female admitted to the hospital for the syncopal episodes along with the fever and periventricular hypodensities documented on MRI raising the possibility of demyelinating disease initially seen by Dr. 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, cervical spine MRI revealed only severe cervical spondylosis but no lesions though thoracic MRI documented increased T2 single intensity in the spinal cord at T12 without contrast enhancement all the findings suggestive of the possible demyelinating disease, she has had an episode of blurriness of vision in the left eye and also left-sided facial numbness who very few seconds, considering the possibility of Ashley sec syndrome versus a demyelinating disease spinal fluid studies are being considered will discussed with the patient today she will definitely benefit from the spinal fluid studies to differentiate whether we are dealing with the demyelinating disease or the suicide X syndrome on the basis of the endothelial disease. Objective Data Vital Signs Vital Signs: Vital Signs - 24 hr 03/06/22 18:30 03/06/22 18:35 03/06/22 18:40 Temperature 36.9 C 36.8 C 36.8 C Pulse Rate 86 90 89 Respiratory Rate 20 20 20 Blood Pressure 118/61 118/57 L 113/49 L Pulse Oximetry 97 98 97 03/06/22 21:50 03/07/22 06:30 03/07/22 06:30 Temperature 37.1 C 36.4 C L 36.4 C L Pulse Rate 88 69 69 Respiratory Rate 18 21 H 21 H Blood Pressure 107/58 L 113/67 113/67 Pulse Oximetry 95 100 100 03/07/22 06:35 03/07/22 07:29 03/07/22 09:50 Temperature 36.3 C L 36.4 C L Pulse Rate 64 73 79 Respiratory Rate 20 20 Blood Pressure 124/74 125/82 119/70 Pulse Oximetry 98 99 03/07/22 09:54 03/07/22 09:58 03/07/22 10:43 Temperature 37.8 C H Pulse Rate 80 84 Respiratory Rate Blood Pressure 123/63 107/45 L Pulse Oximetry Intake/Output Intake/Output: Intake & Output 03/04/22 03/05/22 03/06/22 03/07/22 23:59 23:59 23:59 23:59 Intake Total 1100 3620 4670 1900 Output Total 1500 1505 1 Balance 1100 2120 3165 1899 Meds/Results Medications: Active Medications Generic Name Dose Route Start Last Admin Trade Name Freq PRN Reason Stop Dose Admin Acetaminophen 650 mg 03/05/22 17:01 03/07/22 10:53 Acetaminophen 325 Mg Tablet PO 650 mg Q6H PRN Administration Mild Pain (1-3) or Fever Metronidazole 500 mg in 100 mls @ 100 mls/hr 03/05/22 08:10 03/07/22 07:48 Flagyl 500 Mg/Iso Soln 100 Ml IVPB Infused Q8HR WILLIAM Infusion Ciprofloxacin/Dextrose 200 mls @ 200 mls/hr 03/05/22 09:00 03/07/22 10:19 Cipro 400 Mg/D5w 200 Ml IVPB Infused Q12HR WILLIAM Infusion Potassium Chloride 40 meq/ 520 mls @ 130 mls/hr 03/07/22 10:13 03/07/22 10:54 Sodium Chloride IVPB 03/07/22 14:12 130 mls/hr ONCE ONE Administration Potassium Chloride/Dextrose/Sod Cl 1,000 mls @ 125 mls/hr 03/07/22 11:45 Kcl 20 Meq/D5/0.45% Sod Chl IV CONT .Q8H WILLIAM Levothyroxine Sodium 75 mcg 03/05/22 12:20 03/07/22 05:39 Levothyroxine Sodium 75 Mcg Tablet PO 75 mcg DAILY@0630 WILLIAM Administration Pantoprazole Sodium 40 mg 03/05/22 09:00 03/07/22 09:19 Pantoprazole Sodium Iv 40 Mg Vial IV PUSH 40 mg Q12HR WILLIAM Administration Perflutren Lipid Microsphere 0 ml 03/06/22 18:17 Perflutren Lipid Microspheres 1.5 Ml Vial Diluted To 10 Ml Total Volume IV PUSH 03/08/22 18:17 ONCE PRN adequate visualization Protocol Radiology Results: ITS Impressions Head CT 03/04/22 20:07 IMPRESSION: Periventricular hypodensity in the right frontal lobe, differential includes but is not limited to
[2022-03-07 12:02] LABS: Magnesium 1.8 mg/dL (1.6-2.3)
[2022-03-07 12:08] LABS: Iron 14 ug/dL (37-170)
[2022-03-07 12:16] LABS: Parathyroid Intact 35.3 pg/mL (7.5-53.5)
[2022-03-07 12:19] LABS: Vitamin D 25 Hydroxy 36.8 ng/mL
[2022-03-07 12:20] LABS: Procalcitonin 0.1 ng/mL
[2022-03-07 12:22] LABS: Percent Iron Saturation 6 % (20-50)
[2022-03-07 12:31] LABS: CRP 20.1 mg/dL (<1.0)
[2022-03-07] MEDS: KCL 20 MEQ/D5/0.45% SOD CHL 1,000 ML 125 ML IV CONT ×2 (12:35→21:24)
--- NOTE | 2022-03-07 14:26 | WPDCDIQUERY2 ---
CDI Query Clarification Request 03/06 GI physician documented: Anemia: ?Code(s): D64.9 - Anemia, unspecified ?Status:?Acute ?Assessment and Plan: ?initial hemoglobin was 13.5.? Today is 10.3.? MCV is normal 03/07 Hospitalist documented: ?Anemia: ?Code(s): D64.9 - Anemia, unspecified ?Status:?Acute ?Assessment and Plan: ?fecal occult positive, appreciate GI consultation, hemoglobin dropped again today, continue to monitor ?iron studies pending 03/07 Hgb 9.5 Please clarify if diagnosis of Anemia is: -Acute blood loss -Hemolytic anemia -Other -Unable to determine <Lindsey Padilla - Last Filed: 03/07/22 14:37> Provider Comments we need the egd/colonoscopy results to make a definitive diagnosis, she does have iron def anemia, however <Anna Ayers DO - Last Filed: 03/07/22 18:20>
--- NOTE | 2022-03-07 14:48 | WPDGIPROGNO ---
Progress Note: A&P Assessment and Plan (1) Diarrhea: Code(s): R19.7 - Diarrhea, unspecified Status: Acute Assessment and Plan: diarrhea persists. She has a history of diverticulitis. Now with a CT scan showing thickening of portions of the colon. Stool cultures are in progress and negative today will plan to proceed with colonoscopy to exclude ongoing organic disease. This will be performed tomorrow after preparation today. (2) Nausea and vomiting: Code(s): R11.2 - Nausea with vomiting, unspecified Status: Acute Assessment and Plan: Patient with nausea vomiting. CT scan shows thickening of the stomach and esophagus. Her vomiting and nausea of a resolved. Plan to proceed with EGD tomorrow to exclude organic disease. (3) Abnormal CT scan: Code(s): R93.89 - Abnormal findings on diagnostic imaging of other specified body structures Status: Acute Subjective Date/time seen: 03/07/22 14:48 Patient continues to complain of ongoing diarrhea. She reports nausea has resolved. She has a distant history of diverticulitis. Question of gastritis by CT scanning. Review of Systems Review of Systems: Review of systems noncontributory. Exam Narrative: Physical exam reveals patient to be alert. Comfortable at rest. HEENT exam reveals no icterus. Lungs are clear. Heart without murmur. Abdomen bowel sounds present soft no localized tenderness or masses. Rectal exam deferred at this time Objective Data Vital Signs Vital Signs: Vital Signs - 24 hr 03/06/22 18:30 03/06/22 18:35 03/06/22 18:40 Temperature 98.4 F 98.2 F 98.2 F Pulse Rate 86 90 89 Respiratory Rate 20 20 20 Blood Pressure 118/61 118/57 L 113/49 L Pulse Oximetry 97 98 97 Oxygen Delivery 03/06/22 21:50 03/07/22 06:30 03/07/22 06:30 Temperature 98.8 F 97.5 F L 97.5 F L Pulse Rate 88 69 69 Respiratory Rate 18 21 H 21 H Blood Pressure 107/58 L 113/67 113/67 Pulse Oximetry 95 100 100 Oxygen Delivery 03/07/22 06:35 03/07/22 07:29 03/07/22 09:50 Temperature 97.4 F L 97.5 F L Pulse Rate 64 73 79 Respiratory Rate 20 20 Blood Pressure 124/74 125/82 119/70 Pulse Oximetry 98 99 Oxygen Delivery 03/07/22 09:54 03/07/22 09:58 03/07/22 10:43 Temperature 100.0 F H Pulse Rate 80 84 Respiratory Rate Blood Pressure 123/63 107/45 L Pulse Oximetry Oxygen Delivery 03/07/22 09:00 03/07/22 14:00 Temperature 99.5 F Pulse Rate 82 Respiratory Rate 20 Blood Pressure 115/70 Pulse Oximetry 98 Oxygen Delivery Room Air Intake/Output Intake/Output: Intake & Output 03/04/22 03/05/22 03/06/22 03/07/22 23:59 23:59 23:59 23:59 Intake Total 1100 3620 4670 1900 Output Total 1500 1505 1 Balance 1100 2120 3165 1899 Meds/Results Medications: Active Medications Generic Name Dose Route Start Last Admin Trade Name Freq PRN Reason Stop Dose Admin Acetaminophen 650 mg 03/05/22 17:01 03/07/22 10:53 Acetaminophen 325 Mg Tablet PO 650 mg Q6H PRN Administration Mild Pain (1-3) or Fever Ciprofloxacin/Dextrose 200 mls @ 200 mls/hr 03/05/22 09:00 03/07/22 10:19 Cipro 400 Mg/D5w 200 Ml IVPB Infused Q12HR WILLIAM Infusion Potassium Chloride/Dextrose/Sod Cl 1,000 mls @ 125 mls/hr 03/07/22 11:45 03/07/22 12:35 Kcl 20 Meq/D5/0.45% Sod Chl IV CONT 125 mls/hr .Q8H WILLIAM Administration Levothyroxine Sodium 75 mcg 03/05/22 12:20 03/07/22 05:39 Levothyroxine Sodium 75 Mcg Tablet PO 75 mcg DAILY@0630 WILLIAM Administration Pantoprazole Sodium 40 mg 03/05/22 09:00 03/07/22 09:19 Pantoprazole Sodium Iv 40 Mg Vial IV PUSH 40 mg Q12HR WILLIAM Administration Perflutren Lipid Microsphere 0 ml 03/06/22 18:17 Perflutren Lipid Microspheres 1.5 Ml Vial Diluted To 10 Ml Total Volume IV PUSH 03/08/22 18:17 ONCE PRN adequate visualization Protocol Radiology Results: ITS Impressions Head CT 03/04/22 20:07 IMPRESSION:
[2022-03-07 15:00] LABS: Anion Gap 4 mmol/L (8-16); Blood Urea Nitrogen 2 mg/dL (7-17); Calcium 7.9 mg/dL (8.4-10.2); Carbon Dioxide 27 mmol/L (22-30); Chloride 107 mmol/L (98-107); Estimated CRCL calculation 71 ml/min; Estimated Glomerular Filt Rate > 60; Glucose 118 mg/dL (65-110); Potassium 3.4 mmol/L (3.4-5.0); Sodium 138 mmol/L (137-145)
[2022-03-07 15:05] LABS: INR 1.3; Prothrombin Time 15.2 Seconds (11.1-14.7)
--- NOTE | 2022-03-07 15:48 | PC.NURSE ---
03/07/22 15:00 Explained to pt the procedure of lumbar puncture. Pt refused to sign consent to perform the procedure until she talked to Dr. Rosen. Called Dr. Rosen and he was ok to not perform the procedure.
[2022-03-07] MEDS: PEG (High)/E-LYTE SOLN 4,000 ML BTL 4000 ML PO (17:25)
[2022-03-08] VITALS (15 sets, daily range): BP systolic 85–127; BP diastolic 48–83; PULSE 60–78; RESP 16–22; TEMP 36.2–36.8; O2SAT 96–100
[2022-03-08] MEDS: LEVOTHYROXINE SODIUM 75 MCG TABLET PO (06:39)
[2022-03-08] MEDS: KCL 20 MEQ/D5/0.45% SOD CHL 1,000 ML 125 ML IV CONT ×2 (06:40→22:36)
[2022-03-08 07:30] LABS: Basophils Percent Auto 0.3 % (0.2-1.2); Eosinophils Percent Auto 0.6 % (0-4.4); Hemoglobin 9.9 g/dL (12.0-15.0); Immature Granulocyte Absolute 0.05 K/mm3 (0.00-0.031); Immature Granulocyte Percent A 0.8 % (0-0.5); Lymphocytes Absolute Auto 1.57 K/mm3 (0.9-3.2); Lymphocytes Percent Auto 25.1 % (18.3-44.2); Mean Corpuscular Hemoglobin 30.7 pg (26-34); Mean Corpuscular Volume 92.9 fl (80-100); Mean Platelet Volume 11.3 fl (7.4-10.4); Monocytes Absolute Auto 0.7 K/mm3 (0.1-0.6); Monocytes Percent Auto 11.5 % (2.6-8.5); Neutrophils Absolute Auto 3.9 K/mm3 (1.3-6.7); Neutrophils Percent Auto 61.7 % (45.5-73.1); Platelet Count Result 176 k/mm3 (150-375); Red Blood Count 3.23 M/mm3 (4.2-5.4); Red Cell Distribution Width 13.3 % (11.5-14.5); White Blood Count 6.3 K/mm3 (4.5-10.0)
[2022-03-08 07:44] LABS: Alanine Aminotransferase 23 U/L (6-35); Albumin Level 3.5 g/dL (3.5-5.1); Alkaline Phosphatase 66 U/L (38-126); Anion Gap 7 mmol/L (8-16); Aspartate Amino Transferase 37 U/L (14-36); Bilirubin,Total 0.8 mg/dL (0.2-1.3); Carbon Dioxide 28 mmol/L (22-30); Chloride 102 mmol/L (98-107); Estimated CRCL calculation 62 ml/min; Estimated Glomerular Filt Rate > 60; Glucose 113 mg/dL (65-110); Potassium 3.1 mmol/L (3.4-5.0); Sodium 137 mmol/L (137-145)
[2022-03-08] MEDS: PANTOPRAZOLE SODIUM IV 40 MG VIAL IV PUSH ×2 (08:29→21:20)
[2022-03-08] MEDS: CIPROFLOXACIN 400 MG/D5W 200ML 200 ML 125 MG IVPB (08:32)
[2022-03-08 08:35] LABS: Blood Urea Nitrogen < 2 mg/dL (7-17)
--- NOTE | 2022-03-08 09:30 | WPDANESEPPF ---
Anes - Initial Pre Proc Eval Procedure: Operation Date: 03/08/22 12:00 Proposed Procedures p Esophagogastroduodenoscopy & Colonoscopy - Quinton Chery MD Date/Time: 03/08/22 09:30 Surgeon: Bebe Harris DO Pre Op Diagnosis: AMS,Colitis,Abnormal Head CT Patient Data Age: 61 Gender: F Height: 1.63 m Weight: 66.6 kg Last Vital Signs Temp 36.3 C L 03/08/22 07:09 Pulse 72 03/08/22 07:09 Resp 18 03/08/22 07:09 BP 126/70 03/08/22 07:09 Pulse Ox 96 03/08/22 07:09 O2 Del Method Room Air 03/07/22 09:00 Allergies Allergy/AdvReac Type Severity Reaction Status Date / Time enteric coating Allergy Mild Hives Uncoded 03/05/22 01:36 Home Medications Medication Instructions Recorded Confirmed Type levothyroxine 25 mcg capsule 25 mcg PO DAILY #90 tabs 03/03/22 03/05/22 Rx Laboratory Tests 03/07/22 03/07/22 03/07/22 11:00 11:00 11:00 WBC RBC Hgb Hct MCV MCH MCHC RDW Plt Count MPV Immature Gran % (Auto) Neut % (Auto) Lymph % (Auto) [place] % (Auto) Eos % (Auto) Baso % (Auto) Lymph # (Auto) [place] # (Auto) Eos # (Auto) Baso # (Auto) Abs Immat Gran (auto) Absolute Neuts (auto) Absolute Nucleated RBC Nucleated RBC % PT INR APTT Sodium Potassium Chloride Carbon Dioxide Anion Gap BUN Creatinine Estim Creat Clear Calc Estimated GFR Glucose Lactic Acid Calcium Magnesium 1.8 mg/dL mg/dL (1.6-2.3) Iron 14 ug/dL L ug/dL (37-170) TIBC 219 ug/dL L ug/dL (261-462) % Saturation 6 % L % (20-50) Ferritin 155.00 ng/mL ng/mL (11.1-264) Total Bilirubin AST ALT Alkaline Phosphatase C-Reactive Protein Total Protein Albumin Vitamin D 25-Hydroxy 36.8 ng/mL ng/mL Procalcitonin PTH Intact 35.3 pg/mL pg/mL (7.5-53.5) 03/07/22 03/07/22 03/07/22 11:00 11:00 11:00 WBC RBC Hgb Hct MCV MCH MCHC RDW Plt Count MPV Immature Gran % (Auto) Neut % (Auto) Lymph % (Auto) [place] % (Auto) Eos % (Auto) Baso % (Auto) Lymph # (Auto) [place] # (Auto) Eos # (Auto) Baso # (Auto) Abs Immat Gran (auto) Absolute Neuts (auto) Absolute Nucleated RBC Nucleated RBC % PT INR APTT Sodium Potassium Chloride Carbon Dioxide Anion Gap BUN Creatinine Estim Creat Clear Calc Estimated GFR Glucose Lactic Acid 1.3 mmol/L mmol/L (0.7-2.0) Calcium Magnesium Iron TIBC % Saturation Ferritin Total Bilirubin AST ALT Alkaline Phosphatase C-Reactive Protein 20.1 mg/dL H mg/dL (<1.0) Total Protein Albumin Vitamin D 25-Hydroxy Procalcitonin 0.1 ng/mL ng/mL PTH Intact 03/07/22 03/07/22 03/08/22 14:42 14:42 07:14 WBC 6.3 K/mm3 K/mm3 (4.5-10.0) RBC 3.23 M/mm3 L M/mm3 (4.2-5.4) Hgb 9.9 g/dL L g/dL (12.0-15.0)
--- NOTE | 2022-03-08 09:33 | PC.NURSE ---
Patient scheduled for colonoscopy/EGD today - as of 929 she is refusing to get the procedure done until the doctor comes to see her because she believes she is laying in bed stroking out due to feeling some tingling in her left cheek. Patient also states her left arm is numb. 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 Informed patient I would call the physician per her request. Called Dr. Bowers at [phone], left message for call back.
[2022-03-08] MEDS: LACTATED RINGERS 1,000 ML 150 ML IV CONT (11:37)
--- NOTE | 2022-03-08 11:54 | WPDANESEPPF ---
Anes - Initial Pre Proc Eval Procedure: Operation Date: 03/06/22 14:30 Proposed Procedures p Esophagogastroduodenoscopy EGD - Raheem Tejada MD Operation Date: 03/08/22 12:00 Proposed Procedures p Esophagogastroduodenoscopy & Colonoscopy - Quinton Chery MD Date/Time: 03/08/22 11:54 Surgeon: Bebe Harris DO Pre Op Diagnosis: AMS,Colitis,Abnormal Head CT Patient Data Age: 61 Gender: F Height: 1.63 m Weight: 66.6 kg Last Vital Signs Temp 97.3 F L 03/08/22 11:35 Pulse 78 03/08/22 11:35 Resp 18 03/08/22 11:35 BP 121/65 03/08/22 11:35 Pulse Ox 100 03/08/22 11:35 O2 Del Method Room Air 03/08/22 11:35 Allergies Allergy/AdvReac Type Severity Reaction Status Date / Time enteric coating Allergy Mild Hives Uncoded 03/05/22 01:36 Home Medications Medication Instructions Recorded Confirmed Type levothyroxine 25 mcg capsule 25 mcg PO DAILY #90 tabs 03/03/22 03/05/22 Rx Laboratory Tests 03/07/22 03/07/22 03/07/22 11:00 11:00 11:00 WBC RBC Hgb Hct MCV MCH MCHC RDW Plt Count MPV Immature Gran % (Auto) Neut % (Auto) Lymph % (Auto) [place] % (Auto) Eos % (Auto) Baso % (Auto) Lymph # (Auto) [place] # (Auto) Eos # (Auto) Baso # (Auto) Abs Immat Gran (auto) Absolute Neuts (auto) Absolute Nucleated RBC Nucleated RBC % PT INR APTT Sodium Potassium Chloride Carbon Dioxide Anion Gap BUN Creatinine Estim Creat Clear Calc Estimated GFR Glucose Calcium Magnesium 1.8 mg/dL mg/dL (1.6-2.3) Iron 14 ug/dL L ug/dL (37-170) TIBC 219 ug/dL L ug/dL (261-462) % Saturation 6 % L % (20-50) Ferritin 155.00 ng/mL ng/mL (11.1-264) Total Bilirubin AST ALT Alkaline Phosphatase C-Reactive Protein Total Protein Albumin Vitamin D 25-Hydroxy 36.8 ng/mL ng/mL Procalcitonin PTH Intact 35.3 pg/mL pg/mL (7.5-53.5) 03/07/22 03/07/22 03/07/22 11:00 11:00 14:42 WBC RBC Hgb Hct MCV MCH MCHC RDW Plt Count MPV Immature Gran % (Auto) Neut % (Auto) Lymph % (Auto) [place] % (Auto) Eos % (Auto) Baso % (Auto) Lymph # (Auto) [place] # (Auto) Eos # (Auto) Baso # (Auto) Abs Immat Gran (auto) Absolute Neuts (auto) Absolute Nucleated RBC Nucleated RBC % PT INR APTT Sodium 138 mmol/L mmol/L (137-145) Potassium 3.4 mmol/L mmol/L (3.4-5.0) Chloride 107 mmol/L mmol/L (98-107) Carbon Dioxide 27 mmol/L mmol/L (22-30) Anion Gap 4 mmol/L L mmol/L (8-16) BUN 2 mg/dL L mg/dL (7-17) Creatinine 0.60 mg/dL L mg/dL (0.7-1.0) Estim Creat Clear Calc 71 ml/min ml/min Estimated GFR > 60 (59 - ) Glucose 118 mg/dL H mg/dL (65-110) Calcium 7.9 mg/dL L mg/dL (8.4-10.2) Magnesium Iron TIBC % Saturation Ferritin Total Bilirubin AST ALT Alkaline Phosphatase C-Reactive Protein 20.1 mg/dL H mg/dL (<1.0) Total Protein Alb
--- NOTE | 2022-03-08 12:34 | PM.IMPN ---
Progress Note: A&P Assessment and Plan (1) Acute alteration in mental status: Code(s): R41.82 - Altered mental status, unspecified Status: Acute Assessment and Plan: Appears stable, possibly at baseline, appreciate neurology consultation does not appear to be confused today (2) Colitis: Code(s): K52.9 - Noninfective gastroenteritis and colitis, unspecified Status: Acute Assessment and Plan: continue cipro/flagyl, appreciate GI consultation cultures noted (3) History of cervical cancer: Code(s): Z85.41 - Personal history of malignant neoplasm of cervix uteri Status: Acute Assessment and Plan: Outpatient OBGYN consult recommended and pending (4) Hypothyroidism: Code(s): E03.9 - Hypothyroidism, unspecified Status: Acute Assessment and Plan: continue levothyroxine at 75 mcg, would recommend rechecking TSH in 2-3 weeks due to significant elevation and possibly symptomatic (5) Abnormal CT of the head: Code(s): R93.0 - Abnormal findings on diagnostic imaging of skull and head, not elsewhere classified Status: Acute Assessment and Plan: appreciate neurology consultation. May need LP. (6) Lower abdominal pain: Code(s): R10.30 - Lower abdominal pain, unspecified Status: Acute Assessment and Plan: Unsure of etiology, essentially resolved at this time (7) Syncope: Code(s): R55 - Syncope and collapse Status: Acute Assessment and Plan: echo still pending, follow-up on results (8) Anemia: Code(s): D64.9 - Anemia, unspecified Status: Acute Assessment and Plan: fecal occult positive, appreciate GI consultation, hemoglobin dropped again today, continue to monitor iron studies pending Scope planned (9) Hypokalemia: Code(s): E87.6 - Hypokalemia Status: Acute Assessment and Plan: monitor, replace (10) Hypocalcemia: Code(s): E83.51 - Hypocalcemia Status: Acute Assessment and Plan: unknown etiology, receiving IV fluids will check magnesium, parathyroid hormone, vitamin-D (11) Hypoalbuminemia: Code(s): E88.09 - Other disorders of plasma-protein metabolism, not elsewhere classified Status: Acute Assessment and Plan: suspect this is secondary to poor p.o. intake from colitis, will add supplements with meals, monitor Subjective Date/time seen: 03/08/22 12:34 no new complaints, plan for scope today Exam Narrative: General: No acute distress, alert and oriented per baseline HEENT: Atraumatic, normocephalic, mucous membranes moist CV: Regular rate and rhythm, S1, S2 Lungs: Clear to auscultation bilaterally, no rales or crackles noted, no wheezes, good air entry Abdomen: Soft, nontender, nondistended Extremities: Normal to inspection Skin: No rashes noted, no lesions or wounds seen Psych: Pressured speech, tangential conversation, easily angered and irritable, insight and judgment seem compromised Objective Data Vital Signs Vital Signs: Vital Signs - 24 hr 03/07/22 14:00 03/07/22 23:06 03/08/22 07:05 Temperature 99.5 F 98.7 F 97.4 F L Pulse Rate 82 77 72 Respiratory Rate 20 21 H 18 Blood Pressure 115/70 140/82 126/70 Pulse Oximetry 98 100 96 Oxygen Delivery 03/08/22 07:05 03/08/22 07:06 03/08/22 07:09 Temperature 98.3 F 97.2 F L 97.4 F L Pulse Rate 73 77 72 Respiratory Rate 20 20 18 Blood Pressure 119/69 110/75 126/70 Pulse Oximetry 98 98 96 Oxygen Delivery 03/08/22 09:15 03/08/22 09:19 03/08/22 09:23 Temperature Pulse Rate 72 77 76 Respiratory Rate Blood Pressure 127/52 L 118/62 100/49 L Pulse Oximetry Oxygen Delivery 03/08/22 08:00 03/08/22 11:35 Temperature 97.3 F L Pulse Rate 78 Respiratory Rate 18 Blood Pressure 121/65 Pulse Oximetry 100 Oxygen Delivery Room Air Room Air Intake/Output Intake/Output: Intake & Output 03/05/22 10
--- NOTE | 2022-03-08 12:48 | SUR.OPER ---
EGD start [id number] end, Colonoscopy start 1231 end 1249
--- NOTE | 2022-03-08 13:34 | WPDNEUROPN ---
Subjective Date/time seen: 03/08/22 13:34 Interval history: 1 years old right-handed female admitted to the hospital for the syncopal episode along with the fever and periventricular hypodensities documented MRI raising the possible demyelinating disease patient was initially seen by Dr. Forbes wanted to do a spinal tap to rule out the possibility of the multiple sclerosis. Spinal tap was ordered patient was reluctant to have any further investigation at this particular time and we have canceled the spinal fluid studies. The differential was between Ashley sec syndrome and multiple sclerosis which could be differentiated by spinal fluid studies hopefully patient will be discharged by Dr. Bebe cisse when other workup is complete in the meantime lumbar puncture has been canceledb as per patient's request Objective Data Vital Signs Vital Signs: Vital Signs - 24 hr 03/07/22 14:00 03/07/22 23:06 03/08/22 07:05 Temperature 37.5 C 37.1 C 36.3 C L Pulse Rate 82 77 72 Respiratory Rate 20 21 H 18 Blood Pressure 115/70 140/82 126/70 Pulse Oximetry 98 100 96 Oxygen Delivery 03/08/22 07:05 03/08/22 07:06 03/08/22 07:09 Temperature 36.8 C 36.2 C L 36.3 C L Pulse Rate 73 77 72 Respiratory Rate 20 20 18 Blood Pressure 119/69 110/75 126/70 Pulse Oximetry 98 98 96 Oxygen Delivery 03/08/22 09:15 03/08/22 09:19 03/08/22 09:23 Temperature Pulse Rate 72 77 76 Respiratory Rate Blood Pressure 127/52 L 118/62 100/49 L Pulse Oximetry Oxygen Delivery 03/08/22 08:00 03/08/22 11:35 03/08/22 12:52 Temperature 36.3 C L Pulse Rate 78 64 Respiratory Rate 18 22 H Blood Pressure 121/65 85/48 L Pulse Oximetry 100 97 Oxygen Delivery Room Air Room Air Room Air 03/08/22 13:02 03/08/22 13:12 Temperature Pulse Rate 62 60 Respiratory Rate 20 20 Blood Pressure 100/61 112/65 Pulse Oximetry 100 100 Oxygen Delivery Room Air Room Air Intake/Output Intake/Output: Intake & Output 03/05/22 03/06/22 03/07/22 03/08/22 23:59 23:59 23:59 23:59 Intake Total 3620 3334 4990 1400 Output Total 1500 1505 1 8 Balance 2120 3165 4989 1392 Meds/Results Medications: Active Medications Generic Name Dose Route Start Last Admin Trade Name Freq PRN Reason Stop Dose Admin Acetaminophen 650 mg 03/05/22 17:01 03/07/22 10:53 Acetaminophen 325 Mg Tablet PO 650 mg Q6H PRN Administration Mild Pain (1-3) or Fever Ciprofloxacin/Dextrose 200 mls @ 200 mls/hr 03/05/22 09:00 03/08/22 10:40 Cipro 400 Mg/D5w 200 Ml IVPB Infused Q12HR WILLIAM Infusion Potassium Chloride/Dextrose/Sod Cl 1,000 mls @ 125 mls/hr 03/07/22 11:45 03/08/22 06:40 Kcl 20 Meq/D5/0.45% Sod Chl IV CONT 125 mls/hr .Q8H WILLIAM Administration Levothyroxine Sodium 75 mcg 03/05/22 12:20 03/08/22 06:39 Levothyroxine Sodium 75 Mcg Tablet PO 75 mcg DAILY@0630 WILLIAM Administration Pantoprazole Sodium 40 mg 03/05/22 09:00 03/08/22 08:29 Pantoprazole Sodium Iv 40 Mg Vial IV PUSH 40 mg Q12HR WILLIAM Administration Perflutren Lipid Microsphere 0 ml 03/06/22 18:17 Perflutren Lipid Microspheres 1.5 Ml Vial Diluted To 10 Ml Total Volume IV PUSH 03/08/22 18:17 ONCE PRN adequate visualization Protocol Radiology Results: ITS Impressions Head CT 03/04/22 20:07 IMPRESSION: Periventricular hypodensity in the right frontal lobe, differential includes but is not limited to subacute/chronic periventricular infarct or edema from a demyelinating lesion. Consider MR of the brain with and without contrast when clinically feasible. Cervical Spine CT 03/04/22 20:25 IMPRESSION: No acute fracture or traumatic malalignment in the cervical spine. Abdomen/Pelvis CT 03/04/22 20:37 IMPRESSION: Esophagitis/gastritis. Descending colonic and sigmoid wall edema as can be seen with infectious, ischemic, or inflammatory colitis. Brain MRI 03/05/22 08:54 IMPRESSION: 1. No acute int
[2022-03-08] MEDS: POTASSIUM CHLORIDE INJ 40 MEQ in SODIUM CHLORIDE 0.9% IV 500 ML 75 MEQ IVPB (19:11)
[2022-03-08] MEDS: CIPROFLOXACIN 400 MG/D5W 200ML 200 ML 200 MG IVPB (22:30)
[2022-03-09 05:44] VITALS: BP 111/68; PULSE 84; RESP 16; TEMP 36.6; O2SAT 97
[2022-03-09] MEDS: LEVOTHYROXINE SODIUM 75 MCG TABLET PO (06:39)
--- NOTE | 2022-03-09 07:25 | WPDANESPN ---
Anes - Prog Note Post-Op Date/Time: 03/09/22 07:25 Cardiovascular status: normal Respiratory status: normal Airway patency: baseline Mental status: baseline Post-Op hydration status: normal Vital Signs: Last Vital Signs Temp 98 F 03/09/22 05:44 Pulse 84 03/09/22 05:44 Resp 16 03/09/22 05:44 BP 111/68 03/09/22 05:44 Pulse Ox 97 03/09/22 05:44 O2 Del Method Room Air 03/08/22 13:12 Pain Score (VAS): 0/10 I/O: Intake & Output 03/08/22 03/08/22 03/09/22 15:59 23:59 07:59 Intake Total 8828 368 4938 Output Total 600 1400 Balance 1802 80 -240 Laboratory Tests 03/08/22 07:14 03/08/22 07:14 03/08/22 03/08/22 07:14 07:14 WBC 6.3 RBC 3.23 L Hgb 9.9 L Hct 30.0 L MCV 92.9 MCH 30.7 MCHC 33.0 RDW 13.3 Plt Count 176 MPV 11.3 H Immature Gran % (Auto) 0.8 H Neut % (Auto) 61.7 Lymph % (Auto) 25.1 [place] % (Auto) 11.5 H Eos % (Auto) 0.6 Baso % (Auto) 0.3 Lymph # (Auto) 1.57 [place] # (Auto) 0.7 H Eos # (Auto) 0.0 Baso # (Auto) 0.0 Abs Immat Gran (auto) 0.05 H Absolute Neuts (auto) 3.9 Absolute Nucleated RBC 0.0 Nucleated RBC % 0.0 Sodium 137 Potassium 3.1 L Chloride 102 Carbon Dioxide 28 Anion Gap 7 L BUN < 2 L Creatinine 0.70 Estim Creat Clear Calc 62 Estimated GFR > 60 Glucose 113 H Calcium 8.0 L Total Bilirubin 0.8 AST 37 H ALT 23 Alkaline Phosphatase 66 Total Protein 7.0 Albumin 3.5 Microbiology 03/05/22 02:17 Stool Escherichia coli Shiga Toxins - Final 03/05/22 02:17 Stool Salmonella/Shigella Culture - Final Salmonella species 03/05/22 02:17 Stool Campylobacter Antigen Assay - Final 03/05/22 19:44 Stool Escherichia coli Shiga Toxins - Final 03/05/22 19:44 Stool Salmonella/Shigella Culture - Final 03/05/22 19:44 Stool Campylobacter Antigen Assay - Final 03/05/22 19:44 Stool Cryptosporidium Exam - Final 03/05/22 19:44 Stool Giardia Antigen (KAILEE) - Final Post-procedural complaints: none Patient Feedback: Patient satisfied with anesthetic care.
[2022-03-09 07:29] LABS: Basophils Percent Auto 0.2 % (0.2-1.2); Eosinophils Absolute Auto 0.1 K/mm3 (0-0.3); Eosinophils Percent Auto 1.6 % (0-4.4); Hematocrit 28.4 % (37.0-47.0); Hemoglobin 9.3 g/dL (12.0-15.0); Immature Granulocyte Absolute 0.06 K/mm3 (0.00-0.031); Immature Granulocyte Percent A 1.2 % (0-0.5); Lymphocytes Absolute Auto 1.57 K/mm3 (0.9-3.2); Lymphocytes Percent Auto 30.8 % (18.3-44.2); Mean Corpuscular HGB Conc 32.7 g/dl (32-36); Mean Corpuscular Hemoglobin 30.4 pg (26-34); Mean Corpuscular Volume 92.8 fl (80-100); Mean Platelet Volume 10.8 fl (7.4-10.4); Monocytes Absolute Auto 0.5 K/mm3 (0.1-0.6); Neutrophils Absolute Auto 2.9 K/mm3 (1.3-6.7); Neutrophils Percent Auto 57.2 % (45.5-73.1); Platelet Count Result 210 k/mm3 (150-375); Red Blood Count 3.06 M/mm3 (4.2-5.4); Red Cell Distribution Width 13.6 % (11.5-14.5); White Blood Count 5.1 K/mm3 (4.5-10.0)
[2022-03-09 07:39] LABS: Alanine Aminotransferase 19 U/L (6-35); Albumin Level 3.1 g/dL (3.5-5.1); Alkaline Phosphatase 51 U/L (38-126); Anion Gap 10 mmol/L (8-16); Aspartate Amino Transferase 26 U/L (14-36); Bilirubin,Total 0.5 mg/dL (0.2-1.3); Blood Urea Nitrogen 5 mg/dL (7-17); Calcium 8.2 mg/dL (8.4-10.2); Carbon Dioxide 28 mmol/L (22-30); Chloride 102 mmol/L (98-107); Estimated CRCL calculation 62 ml/min; Estimated Glomerular Filt Rate > 60; Glucose 120 mg/dL (65-110); Potassium 3.7 mmol/L (3.4-5.0); Sodium 140 mmol/L (137-145)
[2022-03-09] MEDS: PANTOPRAZOLE SODIUM IV 40 MG VIAL IV PUSH (08:17)
[2022-03-09] MEDS: CIPROFLOXACIN 400 MG/D5W 200ML 200 ML 200 MG IVPB (08:17)
[2022-03-09] MEDS: KCL 20 MEQ/D5/0.45% SOD CHL 1,000 ML 125 ML IV CONT (08:20)
--- NOTE | 2022-03-09 10:41 | PM.DS ---
DS: Admitting Diagnosis Discharge Date March 09, 2022 Admitting Diagnosis diarrhea DS: Discharge Diagnosis Discharge Diagnosis (1) Acute alteration in mental status: Code(s): R41.82 - Altered mental status, unspecified Status: Acute Assessment and Plan: Appears stable, possibly at baseline, appreciate neurology consultation does not appear to be confused today (2) Colitis: Code(s): K52.9 - Noninfective gastroenteritis and colitis, unspecified Status: Acute Assessment and Plan: continue cipro/flagyl, appreciate GI consultation cultures noted (3) History of cervical cancer: Code(s): Z85.41 - Personal history of malignant neoplasm of cervix uteri Status: Acute Assessment and Plan: Outpatient OBGYN consult recommended and pending (4) Hypothyroidism: Code(s): E03.9 - Hypothyroidism, unspecified Status: Acute Assessment and Plan: continue levothyroxine at 75 mcg, would recommend rechecking TSH in 2-3 weeks due to significant elevation and possibly symptomatic (5) Abnormal CT of the head: Code(s): R93.0 - Abnormal findings on diagnostic imaging of skull and head, not elsewhere classified Status: Acute Assessment and Plan: appreciate neurology consultation. May need LP. (6) Lower abdominal pain: Code(s): R10.30 - Lower abdominal pain, unspecified Status: Acute Assessment and Plan: Unsure of etiology, essentially resolved at this time (7) Syncope: Code(s): R55 - Syncope and collapse Status: Acute Assessment and Plan: echo still pending, follow-up on results (8) Anemia: Code(s): D64.9 - Anemia, unspecified Status: Acute Assessment and Plan: fecal occult positive, appreciate GI consultation, hemoglobin dropped again today, continue to monitor iron studies pending Scope planned (9) Hypokalemia: Code(s): E87.6 - Hypokalemia Status: Acute Assessment and Plan: monitor, replace (10) Hypocalcemia: Code(s): E83.51 - Hypocalcemia Status: Acute Assessment and Plan: unknown etiology, receiving IV fluids will check magnesium, parathyroid hormone, vitamin-D (11) Hypoalbuminemia: Code(s): E88.09 - Other disorders of plasma-protein metabolism, not elsewhere classified Status: Acute Assessment and Plan: suspect this is secondary to poor p.o. intake from colitis, will add supplements with meals, monitor DS: Summary Hospital Course Hospital Course: patient is a 61-year-old female came in with altered mental status and colitis like symptoms. She was found to have Salmonella growing in her stool. She was treated with Cipro did exceptionally well. This has subsequently resolved. She will get 2 more days of Cipro. Otherwise she was having some altered mental status and some weird numbness paresthesias in her left upper extremity. Neurologic workup was not completed because patient did not undergo lumbar puncture here in the hospital. It was recommended to her but she refused. MRI of the cervical and thoracic spine did show some possible demyelination. Neurology was consulted and recommended lumbar puncture. Patient is going to do this as an outpatient on follow-up. She has information to call our office and get scheduled to get this worked up. Time Spent with Patient Time attestation: Total time spent providing and/or coordinating discharge services: Exam Narrative: General: No acute distress, alert and oriented per baseline HEENT: Atraumatic, normocephalic, mucous membranes moist CV: Regular rate and rhythm, S1, S2 Lungs: Clear to auscultation bilaterally, no rales or crackles noted, no wheezes, good air entry Abdomen: Soft, nontender, nondistended Extremities: Normal to inspection Skin: No rashes noted, no lesions or wounds seen Psych: Pressured speech, tangential conversation, easily anger
--- NOTE | 2022-03-09 13:24 | WPDGIPROGNO ---
Progress Note: A&P Assessment and Plan (1) Salmonella enteritis: Code(s): A02.0 - Salmonella enteritis Status: Acute Assessment and Plan: Salmonella appears to account for mild inflammation seen on colonoscopy. Likely accounts for her diarrhea as well as nausea vomiting on presentation. Often times this will improve on its own without necessity for antibiotics. Patient has been started on Cipro empirically and perhaps completing the course of this would be prudent to over 7-10 days. No additional GI workup felt warranted at this time. Disposition per primary care service Subjective Date/time seen: 03/09/22 13:24 Patient alert and less confused today. Appears oriented x3. States diarrhea is improving. Tolerating diet without difficulty. Denies any significant abdominal pain. Review of Systems Review of Systems: Review of systems noncontributory. Exam Narrative: Physical exam reveals patient be alert. Vital signs stable. HEENT exam no icterus. Lungs are clear. Heart without murmur. Abdomen soft nontender with no organomegaly. Objective Data Vital Signs Vital Signs: Vital Signs - 24 hr 03/08/22 14:05 03/08/22 19:30 03/08/22 21:00 Temperature 97.7 F 97.9 F Pulse Rate 67 78 Respiratory Rate 16 20 Blood Pressure 124/83 116/65 116/65 Pulse Oximetry 100 98 Oxygen Delivery 03/08/22 19:31 03/08/22 19:33 03/09/22 05:44 Temperature 98 F Pulse Rate 84 Respiratory Rate 16 Blood Pressure 117/62 118/63 111/68 Pulse Oximetry 97 Oxygen Delivery 03/09/22 08:25 Temperature Pulse Rate Respiratory Rate Blood Pressure Pulse Oximetry Oxygen Delivery Room Air Intake/Output Intake/Output: Intake & Output 03/06/22 03/07/22 03/08/22 03/09/22 23:59 23:59 23:59 23:59 Intake Total 4670 4990 3482 2600 Output Total 1505 1 2408 1400 Balance 3168 6877 1074 1200 Meds/Results Medications: Active Medications Generic Name Dose Route Start Last Admin Trade Name Freq PRN Reason Stop Dose Admin Acetaminophen 650 mg 03/05/22 17:01 03/07/22 10:53 Acetaminophen 325 Mg Tablet PO 650 mg Q6H PRN Administration Mild Pain (1-3) or Fever Ciprofloxacin/Dextrose 200 mls @ 200 mls/hr 03/05/22 09:00 03/09/22 09:17 Cipro 400 Mg/D5w 200 Ml IVPB Infused Q12HR WILLIAM Infusion Potassium Chloride/Dextrose/Sod Cl 1,000 mls @ 125 mls/hr 03/07/22 11:45 03/09/22 08:20 Kcl 20 Meq/D5/0.45% Sod Chl IV CONT 125 mls/hr .Q8H WILLIAM Administration Levothyroxine Sodium 75 mcg 03/05/22 12:20 03/09/22 06:39 Levothyroxine Sodium 75 Mcg Tablet PO 75 mcg DAILY@0630 WILLIAM Administration Pantoprazole Sodium 40 mg 03/05/22 09:00 03/09/22 08:17 Pantoprazole Sodium Iv 40 Mg Vial IV PUSH 40 mg Q12HR WILLIAM Administration Radiology Results: ITS Impressions Head CT 03/04/22 20:07 IMPRESSION: Periventricular hypodensity in the right frontal lobe, differential includes but is not limited to subacute/chronic periventricular infarct or edema from a demyelinating lesion. Consider MR of the brain with and without contrast when clinically feasible. Cervical Spine CT 03/04/22 20:25 IMPRESSION: No acute fracture or traumatic malalignment in the cervical spine. Abdomen/Pelvis CT 03/04/22 20:37 IMPRESSION: Esophagitis/gastritis. Descending colonic and sigmoid wall edema as can be seen with infectious, ischemic, or inflammatory colitis. Brain MRI 03/05/22 08:54 IMPRESSION: 1. No acute intracranial process. 2. Multiple small regions of white matter T2 hyperintensity which could be related to small vessel ischemic disease although there are several pericallosal lesions with appearance of Krause's fingers which also raises the possibility of multiple sclerosis. Cervical Spine MRI 03/06/22 14:11 IMPRESSION: 1. No evidence of multiple sclerosis. 2. Severe cervical spondylosis. Thoracic Spine MRI
== END 2022-03-09 14:27 | disposition home or self-care (01) | DRG 373 ==
LOC: ANHED 19:06 → ANH2MED 03-05 01:29
PROVIDERS: Internal Medicine Gastroenterology; Physician Assistant; Psychiatry & Neurology Neurology; Student in an Organized Health Care Education/Training Program; Admitting Provider Internal Medicine; Emergency Provider Emergency Medicine; PCP Internal Medicine; Visit Provider Chiropractor
PROC: 0DJ08ZZ Inspection of Upper Intestinal Tract, Via Natural or Artificial Opening Endoscopic (ICD-10-PCS; CPT 43235; principal; 2022-03-08 12:00)
DX: A02.0 Salmonella enteritis (principal); E87.6 Hypokalemia; E83.51 Hypocalcemia; E88.09 Other disorders of plasma-protein metabolism, not elsewhere classified; E03.9 Hypothyroidism, unspecified; D50.9 Iron deficiency anemia, unspecified; D12.3 Benign neoplasm of transverse colon; K57.30 Diverticulosis of large intestine without perforation or abscess without bleeding; M47.812 Spondylosis without myelopathy or radiculopathy, cervical region; R55 Syncope and collapse; R19.5 Other fecal abnormalities; R41.82 Altered mental status, unspecified; R93.0 Abnormal findings on diagnostic imaging of skull and head, not elsewhere classified; Z20.822 Contact with and (suspected) exposure to COVID-19; Z85.41 Personal history of malignant neoplasm of cervix uteri
CPT/HCPCS: 36415; 70450; 70553; 72125; 72156; 72157; 74177; 80048; 80053; 80307; 81001; 82274; 82306; 82550; 82607; 82728; 82746; 83540; 83550; 83605; 83735; 83970; 84145; 84443; 84484; 85025; 85055; 85610; 85730; 86140; 87040; 87045; 87077; 87081; 87186; 87269; 87272; 87427; 87493; 88305; 88342; 89055; 93005; 93306; 96361; 96365; 96366; 96367; 96375; 96376; 99285; A9270; A9577; C9113; C9803; G0378; J0131; J0744; J1885; J2405; J2543; J2704; J3480; J7030; J7040; J7120; Q9967; U0003; U0005

== ENCOUNTER 2022-03-15 14:35 | Outpatient (CLI) | payer BC, SELFPAY ==
--- NOTE | ~2022-03-15 | MM_ITS ---
EXAMINATION: MM screening fernie BI w anna HISTORY: Screening TECHNIQUE: Craniocaudal and mediolateral oblique 3-D tomosynthesis images were obtained and synthetic 2-D images were generated. CAD analysis was submitted and interpreted. COMPARISON: No prior mammogram is available for comparison at this institution. BREAST PARENCHYMAL COMPOSITION: Breast composed of scattered areas of fibroglandular density FINDINGS: . There are nodular asymmetries centered in the upper outer quadrant of the right breast. T here are no suspicious masses, calcifications or architectural distortion in the left breast to sugge st malignancy. IMPRESSION: 1. Nodular right breast asymmetries. 2. Additional mammographic views and possible breast ultrasound are recommended. BI-RADS Category 0: Incomplete: Needs additional imaging evaluation. Reviewed, dictated and finalized at location A. IMPRESSION: 1. Nodular right breast asymmetries. 2. Additional mammographic views and possible breast ultrasound are recommended . BI-RADS Category 0: Incomplete: Needs additional imaging evaluation.
--- NOTE | ~2022-03-15 | DEXA_ITS ---
Bone Density Report Name: VIRIDIANA SALAZAR Age: 61 Sex: Female Ethnicity: White Date of : 1960 Indication: postmenopausal; screening for osteoporosis; height loss; Referring Provider: JAUN LOPEZ Study: Bone densitometry was performed. Exam Date: March 15, 2022 Accession number: [id number] Bone Density: Region BMD T-score Z-score Classification AP Spine(L1, L2, L3) 0.927 -0.8 0.7 Normal Femoral Neck (Left) 0.599 -2.3 -0.8 Osteopenia Total Hip (Left) 0.785 -1.3 -0.2 Osteopenia Femoral Neck (Right) 0.579 -2.4 -1.0 Osteopenia Total Hip (Right) 0.793 -1.2 -0.1 Osteopenia Total Hip Mean 0.789 -1.3 -0.2 Osteopenia World Health Organization criteria for BMD impression classify patients as: Normal (T-score at or above -1.0), Osteopenia (T-score between -1.0 and -2.5), or Osteoporosis (T-score at or below -2.5). 10-year Fracture Risk(1): Major Osteoporotic Fracture 12% Hip Fracture 2.0% Reported Risk Factors: [place] (), Neck BMD=0.579, BMI=27.0 (1) FRAX(R) Version 3.08. Fracture probability calculated for an untreated patient. Fracture probability may be lower if the patient has received treatment. Clinical Information Provided by Patient: Has used the following medications: Vitamin D, Calcium Patient maximum height was 64 Menopause Age: 54 No regular weight bearing exercise Onset of menses at age 12 Number of children 2 Impression: The patient has low bone mass, based on the Right Femoral Neck T-score. The patient has an estimated ten-year risk of hip fracture of 2% and an estimated ten-year risk of major fracture of 12%, based on the WHO FRAX algorithm. Discussion: BONE DENSITY IS LOW AT ONE OR MORE SKELETAL SITES. This patient's lowest T-score is low at one or more skeletal sites. It meets the World Health Organization's (WHO) criteria for ?low bone mass? (T-score between -1.0 and -2.5). The patient's 10-year risk of fracture as calculated by FRAX is less than the threshold where pharmacological therapy is recommended by the National Osteoporosis Foundation (NOF). However, all treatment decisions require clinical judgment and consideration of individual patient factors, including patient preferences, comorbidities, previous drug use, risk factors not captured in the FRAX model (e.g., frailty, falls, vitamin D deficiency, increased bone turnover, interval significant decline in bone density) and possible under or overestimation of fracture risk by FRAX. The patient should follow a healthful lifestyle (good nutrition with adequate calcium and vitamin D, and appropriate weight-bearing exercise). Follow-Up: Consider repeating this study in 2 to 3 years to reassess this patient's status, or sooner if there is some new clinical indication. Reported by: DIXIE on 1
== END 2022-03-15 14:36 | disposition home or self-care (01) ==
LOC: ANHIMG 14:37
PROVIDERS: PCP Internal Medicine; Visit Provider Nurse Practitioner
DX: Z12.31 Encounter for screening mammogram for malignant neoplasm of breast (principal); Z78.0 Asymptomatic menopausal state; M85.89 Other specified disorders of bone density and structure, multiple sites; R92.8 Other abnormal and inconclusive findings on diagnostic imaging of breast
CPT/HCPCS: 77063; 77067; 77080

== ENCOUNTER 2022-03-19 12:34 | Outpatient (CLI) | payer BC, SELFPAY ==
--- NOTE | ~2022-03-19 | MR_ITS ---
EXAMINATION: MR shoulder LT wo con DATE: 03/19/2022 14:17 INDICATION: Left shoulder pain TECHNIQUE: Magnetic resonance imaging (MRI) of the left shoulder was performed without intravenous co ntrast. Sequences included axial PD-weighted FS FSE, coronal oblique PD-weighted FS FSE, coronal obli que T2-weighted FS FSE, sagittal PD-weighted FS FSE, and sagittal T1-weighted SE. COMPARISON: None. FINDINGS: Coracoacromial arch: The acromion undersurface is minimally curved in morphology (type I-II). The coracoacromial ligament is normal. Moderate acromioclavicular osteoarthritis. Rotator cuff: Mild infraspinatus tendinopathy without tear. Mild subscapularis tendinopathy without tear. The supra spinatus and teres minor tendons are normal. Normal rotator cuff muscle bulk and signal. Biceps tendon, glenoid labrum and glenohumeral cartilage: Long head of the biceps tendon is normal. Mild glenohumeral osteoarthritis with mild partial-thicknes s chondral thinning lung the cephalad glenoid with smooth chondral surface and without degenerative s ubchondral changes. Chondral swelling and region of linear increased signal at the bone chondral inte rface involving approximately 6 mm diameter region of the superomedial aspect of the humeral head sug gesting possible blisterlike delamination. Shallow medially directed fluid filled cleft at the bone c hondral interface at the 12:00 position of the glenoid consistent with a normal sublingual sulcus. La obed appears otherwise normal. Fluid: Physiologic amount of fluid in the glenohumeral joint and biceps tendon sheath. No loose osteochondr al bodies. No abnormal fluid signal in the subacromial/subdeltoid bursa to suggest bursitis. Bones: Normal marrow signal with no edema, fracture or abnormal marrow replacing process. IMPRESSION: 1. Mild glenohumeral and moderate acromioclavicular osteoarthritis. 2. Mild infraspinatus and subscapularis tendinopathy without tear. Reviewed, dictated and finalized at location A.
== END 2022-03-19 12:35 | disposition home or self-care (01) ==
PROVIDERS: PCP Internal Medicine; Visit Provider Internal Medicine
DX: M25.512 Pain in left shoulder (principal); M19.012 Primary osteoarthritis, left shoulder; M75.82 Other shoulder lesions, left shoulder
CPT/HCPCS: 73221

== ENCOUNTER 2022-04-21 11:24 | Outpatient (CLI) | payer BC, SELFPAY ==
--- NOTE | ~2022-04-21 | MMUS_ITS ---
EXAMINATION: MM diagnostic fernie RT w anna, US breast RT limited HISTORY: Follow-up right breast asymmetries TECHNIQUE: Additional 3-D tomosynthesis images of the right breast were performed and synthetic 2-D i mages were generated. CAD analysis was submitted and interpreted. High resolution Limited right breas t ultrasound was performed. COMPARISON: 03/15/2022 BREAST PARENCHYMAL COMPOSITION: Breast composed of scattered areas of fibroglandular density FINDINGS: MAMMOGRAPHIC FINDINGS: No discrete mass, calcification or architectural distortion is identified in the right breast. There is a persistent focal asymmetry posterior to the nipple on the CC view. ULTRASOUND: Limited left breast ultrasound: At 3:00, 5 cm from the nipple there is a 2 mm cyst. No suspicious mas ses are identified by ultrasound to suggest malignancy. IMPRESSION: 1. Probable benign focal asymmetries of the right breast. No definite sonographic correlate. 2. Recommend 6 month follow-up diagnostic right mammogram BI-RADS category 3, probably benign findings. Reviewed, dictated and finalized at location A. [employer] IMPRESSION: 1. Probable benign focal asymmetries of the right breast. No definite sonograph ic correlate. 2. Recommend 6 month follow-up diagnostic right mammogram BI-RADS category 3, probably benign findings.
== END 2022-04-21 11:25 | disposition home or self-care (01) ==
LOC: ANHIMG 11:25
PROVIDERS: PCP Internal Medicine; Visit Provider Nurse Practitioner
DX: R92.8 Other abnormal and inconclusive findings on diagnostic imaging of breast (principal)
CPT/HCPCS: 76642; 77061; 77065; G0279

== ENCOUNTER 2023-05-11 13:02 | Outpatient (CLI) | payer BC, SELFPAY ==
--- NOTE | ~2023-05-11 | MM_ITS ---
EXAMINATION: MM diagnostic fernie BI w anna HISTORY: Overdue follow-up for probably benign right breast asymmetries. TECHNIQUE: Craniocaudal, mediolateral, and mediolateral oblique 3-D tomosynthesis images of the breas ts were performed and synthetic 2-D images were generated. CAD analysis was submitted and interpreted . COMPARISON: 04/21/2022, 03/15/2022 BREAST PARENCHYMAL COMPOSITION: There are scattered areas of fibroglandular density. FINDINGS: No suspicious mass, calcification, or architectural distortion are identified in either dhiraj ast to suggest malignancy. There has been no suspicious interval change. No persistent right breast asymmetries are identified. IMPRESSION: 1. No mammographic evidence of malignancy. 2. Recommend routine screening mammography in one year. BI-RADS Category 1: Negative Reviewed, dictated and finalized at location A. [employer]
== END 2023-05-11 13:03 | disposition home or self-care (01) ==
LOC: ANHIMG 13:03
PROVIDERS: PCP Internal Medicine; Visit Provider Nurse Practitioner
DX: R92.8 Other abnormal and inconclusive findings on diagnostic imaging of breast (principal)
CPT/HCPCS: 77062; 77066; G0279